=== PATIENT | female | born 2000 | race Hispanic/Latino ===

== ENCOUNTER 2020-10-09 19:26 | Emergency (ER) | payer OTHER, SELFPAY ==
--- NOTE | 2020-10-09 19:28 | ED.GENADULT ---
HPI - General Adult General Chief complaint: Skin/Abscess/Foreign Body Stated complaint: Abscess Source: patient Mode of arrival: ambulatory Limitations: no limitations History of Present Illness HPI narrative: 20 female. PMH includes: None reported. Presents to [facility] today with acute complaints of LT inner groin abscess formation and pain. Client reports to shave her groin area, and noticed increased irritation, erythema, and swelling to site in past 1 week. No fever. No myalgia. No additional areas of integumentary involvement. Related Data Allergies Allergy/AdvReac Type Severity Reaction Status Date / Time No Known Allergies Allergy Verified 01/15/18 12:55 Review of Systems Review of Systems: Narrative: CONSTITUTIONAL: Denies fever, chills, sweats. EYES: Denies visual changes, redness, discharge. ENT: Denies rhinorrhea, congestion, sore throat, otalgia. CARDIOVASCULAR: Denies chest pain, palpitations, edema. RESPIRATORY: Denies dyspnea, wheezing, cough GASTROINTESTINAL: Denies abdominal pain, nausea, vomiting, diarrhea. GENITOURINARY: Denies dysuria, hematuria, abnormal discharge SKIN: Redness and wound LT inner groin. MUSCULOSKELETAL: Denies acute back pain, joint pain, or myalgia. NEUROLOGIC: Denies numbness, or focal weakness. PSYCHIATRIC: Denies anxiety or depression. All systems reviewed & are unremarkable except as noted in HPI and below Exam Narrative: Exam Narrative: GENERAL: This is a well-nourished, well-developed patient, in no apparent distress. HEAD: normocephalic, atraumatic. EYES: PERRL. Sclera clear/white. Vision is grossly intact. EARS: External ears normal, auditory canals clear and without drainage, TMs normal without perforation. Hearing grossly intact. NOSE: External nose normal with no obvious nasal discharge, nares without redness, no rhinorrhea. THROAT: Mucous membranes moist, posterior pharynx clear. NECK: Neck supple, non-tender without lymphadenopathy, masses or thyromegaly. CARDIOVASCULAR: Regular rate and rhythm without murmurs, gallops, or rubs. RESPIRATORY: Clear to auscultation. Breath sounds equal bilaterally. No wheezes, rales, or rhonchi. GASTROINTESTINAL: Abdomen soft, non-tender, nondistended. Bowel sounds are active. No hepato-splenomegaly, or palpable masses. No guarding. SKIN: warm, intact. There is a small 1cm area of fluctuance and erythema located to inner LT groin area. There is tenderness to site. Exam findings consistent with cellulitis/Folliculitis. No additional integumentary wounds or concern. NEURO: awake, alert, and oriented to person, place and time. There were no obvious focal neurologic abnormalities. Steady gait Course Course Emergency Course: -I have discussed with this client that our plan of care today is to proceed with I&D of reported area. -A sample of any drainage will be collected and sent off for further analysis. -The client will be started on antibiotic therapy for skin and soft tissue coverage. -Home plan of care, medication, dressing changes, and wound care has been reviewed. -The patient has been advised to follow up with their primary care provider in the next 3-5 days for close follow-up and re-evaluation. -Proceed to the nearest ER with development of sudden severe pain, swelling, wound discharge, fevers, or worsening. Client agrees. Vital Signs Vital signs: Vital Signs Temperature 36.9 C 10/09/20 19:34 Pulse Rate 89 10/09/20 19:34 Respiratory Rate 16 10/09/20 19:34 Blood Pressure 106/56 L 10/09/20 19:34 Pulse Oximetry 99 10/09/20 19:34 Temperature 36.9 C 10/09/20 19:34 Pulse Rate 89 10/09/20 19:34 Respiratory Rate 16 10/09/20 19:34 Blood Pressure 106/56 L 10/09/20 19:34 Pulse Oximetry 99 10/09/20 19:34 Procedures Abscess I/D lower extremity: Date of Incision: 10/09/20 Time of Incision: 19:43 Side (if applicable): left (Groin ) Sedation/analgesia: no
[2020-10-09 19:34] VITALS: BP 106/56; PULSE 89; RESP 16; TEMP 36.9; O2SAT 99
== END 2020-10-09 19:55 | disposition home or self-care (01) ==
PROVIDERS: Emergency Provider Nurse Practitioner Adult Health; PCP Family Medicine
DX: L73.9 Follicular disorder, unspecified (principal); L03.116 Cellulitis of left lower limb
CPT/HCPCS: 10060; 87070; 87075; 87076; 87205; 99213; G0463

== ENCOUNTER 2021-06-18 14:37 | Emergency (ER) | payer OTHER, SELFPAY ==
[2021-06-18 14:46] VITALS: BP 104/49; PULSE 65; RESP 16; TEMP 37; O2SAT 100
--- NOTE | 2021-06-18 14:48 | ED.ABDPAIN ---
HPI - Abdominal Pain General Chief Complaint: Abdominal Pain Stated Complaint: Abdominal Pain Time Seen by Provider: 06/18/21 14:49 Source: patient, RN notes reviewed and old records reviewed Mode of arrival: ambulatory Limitations: no limitations History of Present Illness HPI narrative: 20-year-old female presents to the [facility] with right upper, right lower and umbilical pain that has been increasing over the last 5 days. Has taken Tylenol which has helped. Denies any chest pain. Last bowel movement was yesterday. Denies any urinary symptoms. No frequency, urgency or burning. Patient reports irregular periods but denies any chances of . MD elicited complaint: abdominal pain Related Data Home Medications Medication Instructions Recorded Confirmed No Home Medications 06/18/21 06/18/21 Allergies Allergy/AdvReac Type Severity Reaction Status Date / Time No Known Allergies Allergy Verified 06/18/21 14:41 Review of Systems Review of Systems: All systems reviewed & are unremarkable except as noted in HPI and below Constitutional: Constitutional: Reports no additional constitutional complaints, Denies body ache(s), Denies chills and Denies fever(s) Eyes: Eyes: Reports no additional eye complaints ENT: Reports system reviewed and no additional complaints, except as documented Cardiovascular: Cardiovascular: Reports no additional cardiovascular complaints, Denies chest pain and Denies dyspnea Respiratory: Respiratory: Reports no additional respiratory complaints, Denies cough and Denies dyspnea Gastrointestinal: Gastrointestinal: Reports as per HPI, Reports abdominal pain, Denies constipation, Denies diarrhea, Denies nausea and Denies vomiting Genitourinary: Genitourinary: Reports no additional female genitourinary complaints Musculoskeletal: Musculoskeletal: Reports no additional musculoskeletal complaints Integumentary/Breasts: Skin/Breast: Reports system reviewed and no additional complaints, except as docu Neurologic: Reports system reviewed and no additional complaints, except as documented Psychiatric: Psychiatric: Reports no additional psychiatric complaints Allergic/Immunologic: Allergic/Immunologic: Reports no additional allergic/immunologic complaints PMFSH Comments At the time of my signature, I reviewed and agree with the nursing past medical, surgical, social, and family history. There is no relevant family history pertinent to the patient complaint. Exam Const: General: cooperative, healthy appearing, comfortable, no acute distress, well developed and alert Nutritional Appearance: well nourished Orientation/consciousness: patient oriented x3 Limitations: no limitations HENMT: Head: normal to inspection Ears: external ears normal Eyes: Pupils: Equal, round and reactive pupils present Neck: Neck: normal visual inspection, no lymphadenopathy and no meningeal signs Chest: Chest palpation & inspection: normal inspection of the chest Resp: Effort & Inspection: normal respiratory effort, able to speak in complete sentences and no use of accessory muscles Auscultation: clear to auscultation bilaterally Cardio: Rate: regular rate Rhythm: regular rhythm GI: GI Palp: Yes Soft to palpation, Yes Tenderness to palpation present (GI) (Right upper, right lower) and No Guarding due to palpation present (GI) Auscultation: normal bowel sounds Back/Spine/Pelvis: Back: no CVA tenderness Skin: General skin exam: normal color and no rashes or lesions noted Rashes: no rashes Wounds: no wounds Neuro: General: patient oriented x3, gait normal, moves all extremities, no meningeal signs and no focal motor deficits Cranial nerves: Yes Equal, round and reactive pupils present Speech: normal speech Gait exam (Neuro): Normal gait present Extrem: General: normal to inspection, full ROM and capillary refill normal Psych: Appearance: grossly normal and well kempt Mental Status: mental status gr
== END 2021-06-18 14:57 | disposition short-term general hospital (02) ==
LOC: EXPCOLL 14:40
PROVIDERS: Emergency Provider Nurse Practitioner; PCP Family Medicine
DX: R10.13 Epigastric pain (principal); R10.31 Right lower quadrant pain
CPT/HCPCS: 99212; G0463

== ENCOUNTER 2021-06-18 15:20 | Emergency (ER) | payer OTHER, SELFPAY ==
--- NOTE | ~2021-06-18 | CT_ITS ---
EXAMINATION: CT abdomen pelvis w con EXAM DATE: 06/18/2021 19:33 INDICATION: Right lower quadrant pain, abdominal cramping. TECHNIQUE: Spiral CT of the abdomen and pelvis was performed following intravenous injection of 100 m L Omnipaque 350. Axial, coronal and sagittal images of the abdomen and pelvis were reviewed. The do se-length product (DLP) for this examination was 386.61 mGy-cm. The exposure was tailored according to patient size (auto mA exposure control), and iterative reconstruction (ASIR) was used as additiona l dose reduction technique. There is no prior study for comparison. FINDINGS: The liver, spleen, adrenal glands and pancreas are unremarkable. Gallbladder is unremarkab le. No biliary obstruction. Portal and splenic veins are patent. Kidneys enhance symmetrically. T here is no hydronephrosis. There is IUD which appears to be centrally located within the endometriu m, expected position. The bladder is unremarkable. There is no retroperitoneal or pelvic lymphadeno olive. There is mild inflammation surrounding the rectum. There are a couple of tiny foci of gas which poten tially could be extraluminal, indicated on axial image 157. Possible indicating rectal trauma. Otherw ise, no evidence of colitis or colonic diverticula. Possible identification of the appendix running just anterior to the right ureter at the pelvic inlet , does not have appendicolith or appear fluid-filled. Finding has been indicated on coronal and axial images were reviewed (see axial image 130). The stomach and small bowel are unremarkable. There is expected amount of colonic stool. The heart is normal in size. There are no pericardial or pleural effusions. The lung bases are unremarkable. There is mild lumbar dextro scoliosis. IMPRESSION: 1. Mild perirectal fat stranding with suspicion of several punctate foci of extraluminal gas suspici ous for microperforation. Clinical correlation. 2. Probable identification of appendix without IUD in position. Reviewed, dictated and finalized at location G. [employer]OLOG[employer] INSTRUCTOR IMPRESSION: 1. Mild perirectal fat stranding with suspicion of several punctate foci of ex traluminal gas suspicious for microperforation. Clinical correlation. 2. Probable identification of appendix without IUD in position.
[2021-06-18 15:40] VITALS: BP 104/62; PULSE 56; RESP 18; TEMP 36.4; O2SAT 100
[2021-06-18 16:50] LABS: Add Urine Microscopic? YES; Appearance Urine Clear (Clear); Bilirubin Urine Negative (Negative); Color Urine Yellow (Yellow); Glucose Urine UA Negative (Negative); Ketones Urine Negative (Negative); Leukocyte Esterase Ur 3+ LEU/UL (Negative); Mucus Urine Rare /lpf; Nitrate Urine Negative (Negative); Protein Urine Negative (Negative); Specific Grav Ur 1.027 (1.001-1.035); Squamous Epithelial Cell Urine Many /hpf (Few); Urobilinogen Urine Negative mg/dL (<2.0); WBC Urine 51-75 /hpf
[2021-06-18 16:55] LABS: Blood Urine Negative (Negative)
[2021-06-18] MEDS: KETOROLAC 15 MG/ML VIAL (*BKC) IV PUSH (17:55)
[2021-06-18] MEDS: SODIUM CHLORIDE 0.9% IV 1,000 ML 999 ML IV CONT (17:59)
[2021-06-18 18:03] LABS: Basophils Percent Auto 0.3 % (0.2-1.2); Eosinophils Absolute Auto 0.2 K/mm3 (0-0.3); Eosinophils Percent Auto 2.3 % (0-4.4); Hematocrit 40.5 % (37.0-47.0); Hemoglobin 13.1 g/dL (12.0-15.0); Immature Granulocyte Absolute 0.02 K/mm3 (0.00-0.031); Immature Granulocyte Percent A 0.3 % (0-0.5); Lymphocytes Absolute Auto 2.02 K/mm3 (0.9-3.2); Lymphocytes Percent Auto 26.8 % (18.3-44.2); Mean Corpuscular HGB Conc 32.3 g/dl (32-36); Mean Corpuscular Hemoglobin 29.4 pg (26-34); Mean Corpuscular Volume 90.8 fl (80-100); Mean Platelet Volume 11.2 fl (7.4-10.4); Monocytes Absolute Auto 0.4 K/mm3 (0.1-0.6); Monocytes Percent Auto 5.8 % (2.6-8.5); Neutrophils Absolute Auto 4.9 K/mm3 (1.3-6.7); Neutrophils Percent Auto 64.5 % (45.5-73.1); Platelet Count Result 227 k/mm3 (150-375); Red Blood Count 4.46 M/mm3 (4.2-5.4); Red Cell Distribution Width 13.6 % (11.5-14.5); White Blood Count 7.5 K/mm3 (4.5-10.0)
[2021-06-18 18:11] LABS: Alanine Aminotransferase 12 U/L (4-35); Albumin Level 4.8 g/dL (3.5-5.1); Alkaline Phosphatase 69 U/L (38-126); Anion Gap 7 mmol/L (8-16); Aspartate Amino Transferase 23 U/L (14-36); Bilirubin,Total 0.3 mg/dL (0.2-1.3); Blood Urea Nitrogen 19 mg/dL (7-17); Calcium 9.6 mg/dL (8.4-10.2); Carbon Dioxide 28 mmol/L (22-30); Chloride 106 mmol/L (98-107); Estimated CRCL calculation 117 ml/min; Estimated Glomerular Filt Rate > 60; Glucose 91 mg/dL (65-110); Lipase 71 U/L (23-300); Potassium 4.3 mmol/L (3.4-5.0); Sodium 141 mmol/L (137-145)
[2021-06-18 20:33] VITALS: BP 121/68; PULSE 78; RESP 16; O2SAT 98
--- NOTE | 2021-06-18 20:55 | PC.NURSE ---
Assisted provider with rectal exam.
--- NOTE | 2021-06-18 20:58 | ED.GENADULT ---
HPI - General Adult General Chief complaint: Abdominal Pain Stated complaint: Abdominal Pain Time Seen by Provider: 06/18/21 17:02 Source: patient and RN notes reviewed Mode of arrival: ambulatory Limitations: no limitations History of Present Illness HPI narrative: Patient is a 20-year-old female who presents to emergency department for evaluation of 4 to 5 days duration of epigastric discomfort that is increased in nature she notes no similar occurrence in the past. Patient denies any rectal bleeding melena diarrhea constipation. She has tried [id number] medication with mild improvement. She localizes the pain to the epigastrium of the abdomen . Denies any URI symptoms or any vaginal or urinary complaints Related Data Allergies Allergy/AdvReac Type Severity Reaction Status Date / Time No Known Allergies Allergy Verified 06/18/21 14:41 Review of Systems Review of Systems: All systems reviewed & are unremarkable except as noted in HPI and below Exam Narrative: GENERAL: Well-appearing, well-nourished, and in no acute distress. HEAD: Normocephalic, atraumatic. EYES: PERRLA and EOMI. ENT: Nares clear, no rhinorrhea or epistaxis. Mucous membranes moist. Oropharynx without tonsillar hypertrophy exudate or other lesions. NECK: Supple. No adenopathy or masses. CHEST: Clear to auscultation. No respiratory distress. No wheezes rales or rhonchi HEART: Regular rate and rhythm. No murmur heard. Normal peripheral pulses. ABDOMEN: Soft, mild epigastric tenderness and right lower quadrant tenderness no rebound or guarding, nondistended, normal active bowel sounds. Rectal exam did not elicit any abnormalities there is no inflammation swelling or irritation around the rectum or drainage EXTREMITIES: Normal range of motion. No edema. SKIN: Warm, dry, no rash. NEURO: No focal deficits. Alert and oriented x3. Cranial nerves II through XII grossly intact PSYCH: Normal mood and affect. Course Course Emergency Course: Patient presented with GI upset her CAT scan findings were reviewed with her and the general surgeon he recommended rectal exam and noted that if there was no acute abnormality on exam that the patient should be treated for urinary tract infection and can be discharged home with outpatient follow-up and given indications for return. Patient aware of her CBC CMP lipase and urinalysis results. There is no fever no nausea emesis. Patient notes mild discomfort of the abdomen. She has no leukocytosis. She agrees for discharge home given strict indications to return and agrees to return if symptoms worsen. She is nontoxic-appearing and without emesis Consultations Consultation #1: Discussed case with general surgeon Dr. Mohsen Woodson who reviewed the CT imaging and labs and recommends rectal exam if no abnormalities on exam recommends that the patient be treated for urinary tract infection with indications to return and outpatient follow-up Date: 06/18/21 Vital Signs Vital signs: Vital Signs Temperature 97.5 F L 06/18/21 15:40 Pulse Rate 56 L 06/18/21 15:40 Respiratory Rate 18 06/18/21 15:40 Blood Pressure 104/62 06/18/21 15:40 Pulse Oximetry 100 06/18/21 15:40 Temperature 97.5 F L 06/18/21 15:40 Pulse Rate 78 06/18/21 20:33 Respiratory Rate 16 06/18/21 20:33 Blood Pressure 121/68 06/18/21 20:33 Pulse Oximetry 98 06/18/21 20:33 Medical Decision Making MDM Narrative Medical decision making narrative: Patient presented with abdominal pain without any fever nausea vomiting or bowel habit changes denying any rectal pain or discomfort. Her blood results and imaging results reviewed with the general surgeon decision was made to treat for urinary tract infection with outpatient follow-up with strict indications for return. Patient was given these indications and agrees to do so symptoms worsen. She was hydrated and given medications in the emergency department with improvement. She is afebrile n
[2021-06-18 21:44] VITALS: PULSE 77; RESP 18; O2SAT 98
== END 2021-06-18 21:51 | disposition home or self-care (01) ==
PROVIDERS: Emergency Medicine; Emergency Medicine Emergency Medical Services; Emergency Provider Emergency Medicine; PCP Family Medicine
DX: R10.13 Epigastric pain (principal); Z97.5 Presence of (intrauterine) contraceptive device; R93.3 Abnormal findings on diagnostic imaging of other parts of digestive tract
CPT/HCPCS: 36415; 74177; 80053; 81001; 81025; 83690; 85025; 87086; 96361; 96365; 96375; 99284; J0131; J0696; J1885; J7030; Q9967

== ENCOUNTER 2022-04-09 12:49 | Emergency (ER) | payer OTHER, SELFPAY ==
[2022-04-09 12:55] VITALS: BP 113/69; PULSE 70; RESP 18; TEMP 36.6; O2SAT 100
--- NOTE | 2022-04-09 12:57 | ED.EYEPROB ---
HPI - Eye Problem General Chief complaint: Eye Problems Stated complaint: left eye pain Time Seen by Provider: 04/09/22 12:57 Source: patient and RN notes reviewed Mode of arrival: ambulatory Limitations: no limitations History of Present Illness HPI Narrative: 21-year-old female presents with concern for left eye redness, drainage. Reports symptoms started last night. Reports her eye was crusted shut when she woke up this morning. She denies injury or trauma to the eye. Reports she wears contact lenses but she did not sleep in them. She denies upper respiratory symptoms, vision changes chief complaint: eye redness Related Data Home Medications Medication Instructions Recorded Confirmed bupropion HCl 300 mg 24 hr tablet, 300 mg PO DAILY 04/09/22 04/09/22 extended release trazodone 100 mg tablet 100 mg PO DAILY 04/09/22 04/09/22 Allergies Allergy/AdvReac Type Severity Reaction Status Date / Time No Known Allergies Allergy Verified 04/09/22 12:59 Review of Systems Review of Systems: CONSTITUTIONAL: Denies malaise, chills, sweats, or fever. EYES: Denies visual changes. Reports left eye redness, irritation, discharge. ENT: Denies rhinorrhea, congestion, sinus pain, otalgia or sore throat. SKIN: Denies rash or itching. NEUROLOGIC: Denies numbness, weakness, or headache. PSYCHIATRIC: Denies anxiety or depression. All systems reviewed & are unremarkable except as noted in HPI and below PMFSH Comments At time of signature, agree with nursing past medical, surgical, social and family history. There is no relevant family history pertinent to the presenting complaint Exam Narrative: GENERAL: Well-appearing, well-nourished, and in no acute distress. HEAD: Normocephalic, atraumatic. EYES: PERRLA, right sclera clear, and EOMI. No nystagmus. Left sclera and conjunctivae injected with green drainage noted. Upper and lower eyelid unremarkable, no periorbital edema noted ENT: Nares clear, turbinates pink, no rhinorrhea or epistaxis. Mucous membranes moist. TM pearly nazario with sharp light reflex bilaterally; no tragal tenderness. NECK: Supple. CHEST: No respiratory distress. Speaks in full sentences. HEART: Regular rate and rhythm. SKIN: Warm, dry, no visible rash. NEURO: Alert and oriented x3. PSYCH: Normal mood and affect Course Course Emergency Course: Patient is aware of diagnosis, understands and agrees to treatment plan. Anticipatory guidance given. Patient agrees to follow-up as directed and is aware of reasons to seek care at the emergency department. Portions of this record may have been created with voice recognition software Level of Care: Express Care Visit Vital Signs Vital signs: Reviewed. MDM - Eye Problem MDM Narrative Medical decision making narrative: Consideration of the following conditions may be warranted for the presenting problem, they are not final diagnoses: Bacterial conjunctivitis, allergic conjunctivitis, viral conjunctivitis, foreign body, blepharitis, chalazion, hordeolum, corneal abrasion, preseptal cellulitis, orbital cellulitis. No evidence of proptosis, ophthalmoplegia, vision loss, pain with eye movement. Exam findings show no acute concerns or changes; patient is non-toxic appearing and is in no distress. Patient is appropriate for outpatient treatment and follow-up. Critical Care Time Critical Care Time Critical Care Time: No Discharge Plan Discharge Clinical Impression: Bacterial conjunctivitis Patient Disposition: Home, Self-Care Condition: Stable Instructions: Conjunctivitis (ED) Additional Instructions: Do not touch or rub your eye. Use a warm or cool washcloth on your eye for comfort Use eyedrops as directed Practice good handwashing and hygiene to prevent spread of infection You may take Tylenol or ibuprofen for pain Follow-up with PCP or parboiler if condition is not improving in 2-3days. Go to the emergency room if you have pain be
== END 2022-04-09 13:08 | disposition home or self-care (01) ==
PROVIDERS: Emergency Provider Nurse Practitioner; PCP Family Medicine
DX: H10.9 Unspecified conjunctivitis (principal); F41.9 Anxiety disorder, unspecified; F32.A Depression, unspecified
CPT/HCPCS: 99213; G0463

== ENCOUNTER 2022-07-17 15:01 | Outpatient (CLI) | payer OTHER, SELFPAY ==
--- NOTE | 2022-07-17 | ECG_ITS ---
Measurements Intervals Kinsey Rate: 65 P: 47 CA: 166 QRS: 32 QRSD: 106 T: 49 QT: 404 QTc: 423 Interpretive Statements SINUS RHYTHM BORDERLINE T WAVE ABNORMALITY- ANTERIOR LEADS BORDERLINE ECG NO PREVIOUS ECG AVAILABLE FOR COMPARISON Electronically Signed On 07-17-2022 15:50:10 [employer]UCLE[employer] POWER REACTOR OPERATOR by Jens Otero D.O.
== END 2022-07-17 15:02 | disposition home or self-care (01) ==
LOC: ANHCARD 15:03
PROVIDERS: PCP Family Medicine; Visit Provider Family Medicine
DX: Z01.818 Encounter for other preprocedural examination (principal); Z41.1 Encounter for cosmetic surgery
CPT/HCPCS: 93005

== ENCOUNTER 2022-07-29 11:16 | Emergency (ER) | payer OTHER, SELFPAY ==
[2022-07-29 11:28] VITALS: BP 106/50; PULSE 67; RESP 12; TEMP 36.4; O2SAT 100
--- NOTE | 2022-07-29 12:23 | ED.BACK ---
HPI - Back Pain/Injury General Chief Complaint: Back Pain/Injury Stated Complaint: low back pain Time Seen by Provider: 07/29/22 12:23 Source: patient, RN notes reviewed and old records reviewed Mode of arrival: ambulatory Limitations: no limitations History of Present Illness HPI Narrative: 22-year-old female presents to the [facility] with complaints of low back pain History of low back pain, denies any injury. No loss or retention of bowel or bladder. No saddle anesthesia. No numbness or tingling in extremities Related Data Home Medications Medication Instructions Recorded Confirmed bupropion HCl 300 mg 24 hr tablet, 300 mg PO DAILY 04/09/22 07/29/22 extended release 6 Years Iud 07/29/22 Allergies Allergy/AdvReac Type Severity Reaction Status Date / Time No Known Allergies Allergy Verified 07/29/22 11:39 Review of Systems Review of Systems: All systems reviewed & are unremarkable except as noted in HPI and below Constitutional: Constitutional: Reports no additional constitutional complaints Eyes: Eyes: Reports no additional eye complaints ENT: Reports system reviewed and no additional complaints, except as documented Cardiovascular: Cardiovascular: Reports no additional cardiovascular complaints, Denies chest pain and Denies dyspnea Respiratory: Respiratory: Reports no additional respiratory complaints, Denies chest congestion, Denies cough and Denies dyspnea Gastrointestinal: Gastrointestinal: Reports no additional gastrointestinal complaints, Denies abdominal pain, Denies nausea and Denies vomiting Musculoskeletal: Musculoskeletal: Reports as per HPI and Reports back pain (Lumbar lower) Integumentary/Breasts: Skin/Breast: Reports system reviewed and no additional complaints, except as docu Neurologic: Reports system reviewed and no additional complaints, except as documented Psychiatric: Psychiatric: Reports no additional psychiatric complaints Allergic/Immunologic: Allergic/Immunologic: Reports no additional allergic/immunologic complaints PMFSH Comments At the time of my signature, I reviewed and agree with the nursing past medical, surgical, social, and family history. There is no relevant family history pertinent to the patient complaint. Exam Const: General: cooperative, healthy appearing, comfortable, no acute distress, well developed, alert and well nourished Nutritional Appearance: well nourished Orientation/consciousness: patient oriented x3 Limitations: no limitations HENMT: Head: normal to inspection Ears: hearing grossly normal bilaterally and external ears normal Face/Nose/Sinus: Normal external nose present, Normal nares present, Normal nasal mucous membranes and turbinates present and normal facial exam Face and sinus: normal facial exam Mouth: Yes Normal oral and palatal mucosa present, Yes lip normal and Yes moist mucous membranes Eyes: General: appearance normal, both eyes and all related structures Alignment and Position: alignment normal Periorbital: periorbital findings normal Conjunctivae: conjunctivae normal Pupils: Equal, round and reactive pupils present EOM: EOMs intact bilaterally Neck: Neck: normal visual inspection, full ROM, no lymphadenopathy and no meningeal signs Chest: Chest palpation & inspection: normal inspection of the chest Resp: Effort & Inspection: normal respiratory effort and able to speak in complete sentences Auscultation: clear to auscultation bilaterally, no crackles, no rales, no rhonchi and no wheezes Cardio: Rate: regular rate Rhythm: regular rhythm Back/Spine/Pelvis: Back: no CVA tenderness Cervical Spine: cervical ROM normal Thoracic/Lumbar Spine: paraspinal muscle tenderness on the left in the lower lumbar, No thoracic spinal tenderness and No lumbar spinal tenderness Pelvis: no pain with anterior-posterior compression and no pain with lateral compression Skin: General skin exam: normal color and no rashes or lesions noted L
== END 2022-07-29 12:37 | disposition home or self-care (01) ==
PROVIDERS: Emergency Provider Nurse Practitioner; PCP Family Medicine
DX: S39.012A Strain of muscle, fascia and tendon of lower back, initial encounter (principal); X58.XXXA Exposure to other specified factors, initial encounter; F41.9 Anxiety disorder, unspecified; F32.A Depression, unspecified
CPT/HCPCS: 81003; 81025; 99213; G0463

== ENCOUNTER 2023-04-26 15:34 | Emergency (ER) | payer OTHER, SELFPAY ==
[2023-04-26 15:59] VITALS: BP 93/67; PULSE 79; RESP 16; TEMP 37.2; O2SAT 100
--- NOTE | 2023-04-26 17:14 | ED.DENTAL ---
HPI - Dental/Oral General Chief complaint: Dental/Oral Stated complaint: Mouth Irritation Source: patient Mode of arrival: ambulatory Limitations: no limitations History of Present Illness HPI Narrative: Patient presents for evaluation of painful mucosal changes to the inner aspect of her upper and lower lips for the past five days. She currently has braces and states that the metal has been cutting into the oral mucosa of her lips. Her lips feel dry. She has applied hydrogen peroxide and states that the areas appear white. She was concerned about the appearance of the lips so came in for further evaluation. She denies any other symptoms. She is not sure whether she has ever had cold sores in the past. Related Data Home Medications Medication Instructions Recorded Confirmed hydroxyzine HCl 10 mg tablet mg 04/26/23 trazodone 100 mg tablet mg 04/26/23 Allergies Allergy/AdvReac Type Severity Reaction Status Date / Time No Known Allergies Allergy Verified 04/26/23 16:12 Review of Systems Review of Systems: CONSTITUTIONAL: Denies fever, chills, or sweats. EYES: Denies visual changes, redness, or discharge. ENT: Reports painful changes to the mucosa of her inner upper and lower lips. Denies rhinorrhea, congestion, sore throat, or otalgia. CARDIOVASCULAR: Denies chest pain, palpitations, or edema. RESPIRATORY: Denies cough or dyspnea. GASTROINTESTINAL: Denies abdominal pain, nausea, vomiting, or diarrhea. GENITOURINARY: Denies dysuria or hematuria. SKIN: Denies rash or itching. MUSCULOSKELETAL: Denies back pain, joint pain, or myalgia. NEUROLOGIC: Denies headache, numbness, dizziness, or weakness. PSYCHIATRIC: Denies anxiety or depression. [facility] Past Medical History Medical History No pertinent past medical history Surgical History Surgical History No pertinent past surgical history Family History Family History Mother Family history non-contributory Social History Social History Smoking status: Never smoker Substance use: never Gender identity (if verbalized by the patient): Female Spiritual care concerns: No Exam Narrative: GENERAL: Well-appearing, well-nourished, and in no acute distress. HEAD: Normocephalic, atraumatic. EYES: PERRLA and EOMI. ENT: Nares clear, no rhinorrhea or epistaxis. Patient has braces to her upper and lower teeth. Mucous membranes moist. There is a white appearance to mucosa of the inner aspect of her upper lip in the area which would come in contact with her braces, consistent with granulation tissue. Oropharynx without tonsillar hypertrophy exudate Bilateral TMs pearly nazario nonbulging NECK: Supple. No adenopathy or masses. No carotid bruits or JVD CHEST: Clear to auscultation. No respiratory distress. No wheezes rales or rhonchi HEART: Regular rate and rhythm. No murmur heard. Normal peripheral pulses. ABDOMEN: Soft, nontender, nondistended, normal active bowel sounds. EXTREMITIES: Normal range of motion. No edema. SKIN: Warm, dry, no rash. NEURO: No focal deficits. Alert and oriented x3. PSYCH: Normal mood and affect. Course Course Emergency Course: This is a 22-year-old female who presented for evaluation of painful lip ulcers. Appearance is consistent with granulation tissue. Advised she stop using hydrogen peroxide as it may break down healing tissue. Will dc with peridex. Advised she apply vaseline to her lips. She may purchase dental wax to coat her metallic braces with so as to allow for healing of lip mucosa. 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 Go to the emergency room for worsening symptoms. Pt in agreement with plan of care. Get
== END 2023-04-26 17:26 | disposition home or self-care (01) ==
PROVIDERS: Emergency Provider Nurse Practitioner; PCP Family Medicine
DX: K13.0 Diseases of lips (principal)
CPT/HCPCS: 99213; G0463

== ENCOUNTER 2023-05-26 11:05 | Outpatient (CLI) | payer OTHER, SELFPAY ==
--- NOTE | ~2023-05-26 | US_ITS ---
Renal-Bladder ultrasound Clinical History: History of polycystic kidney disease Technique: Real-time sonographic imaging of the kidneys and urinary bladder was performed. Findings: The right kidney measures 10.2 cm in length and the left kidney measures 10.9 cm. There is no hydronephrosis or renal calculus identified. Renal cortical echogenicity is within normal limits. No renal mass lesion is identified. The urinary bladder is partially distended at the time of this exam. No intraluminal echoes are ident ified. No abnormal wall thickening is seen. Impression: Unremarkable ultrasound of the kidneys and urinary bladder. Reviewed, dictated and finalized at location M. E RECEIVER Impression: Unremarkable ultrasound of the kidneys and urinary bladder.
== END 2023-05-26 11:06 | disposition home or self-care (01) ==
LOC: ANHIMG 11:09
PROVIDERS: PCP Family Medicine; Visit Provider Family Medicine
DX: Z82.71 Family history of polycystic kidney (principal)
CPT/HCPCS: 76775

== ENCOUNTER 2023-07-08 17:22 | Emergency (ER) | payer OTHER, SELFPAY ==
[2023-07-08 17:32] VITALS: BP 119/58; PULSE 63; RESP 16; TEMP 36.9; O2SAT 100
--- NOTE | 2023-07-08 17:45 | ED.GENADULT ---
HPI - General Adult General Chief complaint: Skin/Abscess/Foreign Body Stated complaint: Right Hand Irritation Source: patient, RN notes reviewed and old records reviewed Mode of arrival: ambulatory Limitations: no limitations History of Present Illness HPI narrative: patient with complaints of redness, irritation, itching to back right hand this started several months ago. 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 Patient states has not been using the bleach for over 3 months but your taken does clear up. Patient states Vaseline does help, but redness and irritation returns. Related Data Home Medications Medication Instructions Recorded Confirmed trazodone 100 mg tablet 100 mg PO DAILY 04/26/23 07/08/23 Allergies Allergy/AdvReac Type Severity Reaction Status Date / Time No Known Allergies Allergy Verified 07/08/23 17:36 Review of Systems Constitutional: Constitutional: Reports no additional constitutional complaints, Denies body ache(s), Denies chills, Denies fatigue, Denies fever(s) and Denies headache(s) Eyes: Eyes: Reports no additional eye complaints and Denies blurry vision ENT: Reports system reviewed and no additional complaints, except as documented, Denies vertigo, Denies dizziness, Denies ear discharge, Denies otalgia, Denies facial pain, Denies headache(s), Denies nasal congestion, Denies nasal discharge, Denies sinus pain, Denies sinus pressure and Denies sore throat Cardiovascular: Cardiovascular: Reports no additional cardiovascular complaints, Denies chest pain, Denies chest pain at rest, Denies rapid heart rate and Denies dyspnea Respiratory: Respiratory: Reports no additional respiratory complaints, Denies chest congestion, Denies cough, Denies pain on inspiration, Denies pain with cough and Denies dyspnea Gastrointestinal: Gastrointestinal: Denies abdominal pain, Denies diarrhea, Denies nausea and Denies vomiting Integumentary/Breasts: Skin/Breast: Reports rash and Reports skin pain Neurologic: Reports system reviewed and no additional complaints, except as documented, Denies vertigo, Denies dizziness and Denies headache(s) Endocrine: Endocrine: Denies fatigue PMFSH Past Medical History Medical History No pertinent past medical history Surgical History Surgical History No pertinent past surgical history Family History Family History Mother Family history non-contributory Social History Social History Smoking status: Never smoker Substance use: never Gender identity (if verbalized by the patient): Female Spiritual care concerns: No Comments At the time of my signature, I reviewed and agree with the nursing past medical, surgical, social, and family history. There is no relevant family history pertinent to the patient complaint. Exam Const: General: cooperative, healthy appearing, no acute distress and well nourished Nutritional Appearance: well nourished Orientation/consciousness: patient oriented x3 Limitations: no limitations HENMT: Head: normal to inspection and normocephalic Ears: external ears normal Face/Nose/Sinus: normal facial exam Face and sinus: normal facial exam Mouth: Yes Normal oral and palatal mucosa present and Yes moist mucous membranes Eyes: General: appearance normal, both eyes and all related structures Sclera: sclerae normal Pupils: Equal, round and reactive pupils present Resp: Effort & Inspection: normal respiratory effort, able to speak in complete sentences, no audible wheezes, no cough, no respiratory distress and no retractions Skin: General skin exam: normal color Rashes: rashes noted ( 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
== END 2023-07-08 17:55 | disposition home or self-care (01) ==
PROVIDERS: Emergency Provider Registered Nurse; PCP Family Medicine
DX: L30.9 Dermatitis, unspecified (principal)
CPT/HCPCS: 99213; G0463

== ENCOUNTER 2023-12-05 18:32 | Emergency (ER) | payer OTHER, SELFPAY ==
--- NOTE | ~2023-12-05 | XR_ITS ---
EXAMINATION: XR mandible min 4V DATE: 12/05/2023 19:05 INDICATION: Right-sided mandibular pain post fall TECHNIQUE: AP, open-mouth and left and right oblique views of the mandibles were obtained. COMPARISON: None. FINDINGS: Bilateral temporal mandibular joints are normal alignment. No fractures identified. Mastoid air cells and paranasal sinuses appear well aerated with no evident air-fluid levels. IMPRESSION: 1. Negative mandible radiographs. Reviewed, dictated and finalized at location A.
[2023-12-05 18:42] VITALS: BP 115/64; PULSE 87; RESP 16; TEMP 37.1; O2SAT 100
--- NOTE | 2023-12-05 18:46 | ED.FALL ---
HPI - Fall General Chief Complaint: Fall Stated Complaint: FALL Time Seen by Provider: 12/05/23 18:46 Source: patient, RN notes reviewed and old records reviewed Mode of arrival: ambulatory Limitations: no limitations History of Present Illness HPI Narrative: 23-year-old female presents to the [facility] with an abrasion to her chin. Unknown last Tdap Patient states that she tripped and fell, tenderness to the right mandible No bruising or swelling noted, avulsion or abrasion of skin noted to the bottom of the chin measuring 1 by 1 cm Injury occurred approximately 10 30 this morning Denies loss of consciousness, blurry vision, change in vision. No eye pain or ear pain. No sore throat. Full range of motion of the jaw. No midline tenderness Related Data Home Medications Medication Instructions Recorded Confirmed bupropion HCl 300 mg 24 hr tablet, 300 mg PO DAILY 12/05/23 12/05/23 extended release Allergies Allergy/AdvReac Type Severity Reaction Status Date / Time No Known Allergies Allergy Verified 12/05/23 18:34 Review of Systems Review of Systems: All systems reviewed & are unremarkable except as noted in HPI and below Constitutional: Constitutional: Reports no additional constitutional complaints Eyes: Eyes: Reports no additional eye complaints ENT: Reports as per HPI Cardiovascular: Cardiovascular: Reports no additional cardiovascular complaints, Denies chest pain and Denies dyspnea Respiratory: Respiratory: Reports no additional respiratory complaints, Denies chest congestion, Denies cough and Denies dyspnea Gastrointestinal: Gastrointestinal: Reports no additional gastrointestinal complaints, Denies abdominal pain, Denies nausea and Denies vomiting Musculoskeletal: Musculoskeletal: Reports no additional musculoskeletal complaints Integumentary/Breasts: Skin/Breast: Reports as per HPI Neurologic: Reports system reviewed and no additional complaints, except as documented Psychiatric: Psychiatric: Reports no additional psychiatric complaints Allergic/Immunologic: Allergic/Immunologic: Reports no additional allergic/immunologic complaints [facility] Past Medical History Medical History No pertinent past medical history Surgical History Surgical History No pertinent past surgical history Family History Family History Mother Family history non-contributory Social History Social History Smoking status: Never smoker Substance use: never Gender identity (if verbalized by the patient): Female Spiritual care concerns: No Comments At the time of my signature, I reviewed and agree with the nursing past medical, surgical, social, and family history. There is no relevant family history pertinent to the patient complaint. Exam Const: General: cooperative, healthy appearing, comfortable, no acute distress, well developed, alert and well nourished Nutritional Appearance: well nourished Orientation/consciousness: patient oriented x3 Limitations: no limitations HENMT: Head: normal to inspection Head images: 1. Tender to palpation without erythema, ecchymosis or swelling Ears: hearing grossly normal bilaterally and external ears normal Face/Nose/Sinus: Normal external nose present, Normal nares present, Normal nasal mucous membranes and turbinates present, normal facial exam and face symmetric Face and sinus: normal facial exam and face symmetric Mouth: Yes Normal oral and palatal mucosa present, Yes lip normal and Yes tongue normal Teeth and gingiva: dentition normal Throat: posterior oropharynx normal, tonsils normal, uvula midline and no uvular edema Eyes: General: appearance normal, both eyes and all related structures Alignment and Position: alignment nor
[2023-12-05] MEDS: TETANUS,DIPHTHERIA,AC PERTUSSIS ADULT (0.5 ML) BOOSTRIX IM (19:06)
== END 2023-12-05 20:05 | disposition home or self-care (01) ==
PROVIDERS: Emergency Provider Nurse Practitioner; PCP Family Medicine
DX: S00.81XA Abrasion of other part of head, initial encounter (principal); W01.0XXA Fall on same level from slipping, tripping and stumbling without subsequent striking against object, initial encounter; Z23 Encounter for immunization
CPT/HCPCS: 70110; 90471; 90715; 99213; G0463

== ENCOUNTER 2024-07-09 11:00 | Emergency (ER) | payer OTHER, SELFPAY ==
[2024-07-09 11:09] VITALS: BP 111/63; PULSE 82; RESP 16; TEMP 37.1; O2SAT 99
--- NOTE | 2024-07-09 11:25 | ED_ITS ---
HPI - URI/Sore Throat General Chief Complaint: Upper Respiratory Infection Stated Complaint: runny nose,cough,body pain,ERAZO Time Seen by Provider: 07/09/24 11:25 Source: patient Mode of arrival: ambulatory Limitations: no limitations History of Present Illness HPI Narrative: 23-year-old female presents with complaint of cough, congestion, fatigue, body aches, fever, chills for 5 days. Denies nausea vomiting diarrhea. No chest pain or shortness of breath. Taking [id number] Mucinex to treat symptoms. All systems reviewed and negative except as noted above. Related Data Home Medications ?Medication ?Instructions ?Recorded ?Confirmed ?Last Taken ?Type bupropion HCl 300 mg 24 hr tablet, 300 mg PO DAILY 12/05/23 12/05/23 Unknown Hi story extended release Allergies Allergy/AdvReac Type Severity Reaction Status Date / Time No Known Allergies Allergy Verified 12/05/23 18:34 Review of Systems Review of Systems: CONSTITUTIONAL: reports fever, chills, or sweats. EYES: Denies visual changes, redness, or discharge. ENT: Reports rhinorrhea, congestion. Denies sore throat, or otalgia. CARDIOVASCULAR: Denies chest pain, palpitations, or edema. RESPIRATORY: reports cough. Denies dyspnea. GASTROINTESTINAL: Denies abdominal pain, nausea, vomiting, or diarrhea. GENITOURINARY: Denies dysuria or hematuria. SKIN: Denies rash or itching. MUSCULOSKELETAL: Denies back pain, joint pain, or myalgia. NEUROLOGIC: Denies headache, numbness, or weakness. PSYCHIATRIC: Denies anxiety or depression. All other systems reviewed are negative, except as documented in HPI. [facility] Past Medical History Medical History No pertinent past medical history Surgical History Surgical History No pertinent past surgical history Family History Family History Mother Family history non-contributory Social History Social History Smoking status: Never smoker Substance use: never Gender identity (if verbalized by the patient): Female Spiritual care concerns: No Comments At time of signature, agree with nursing past medical, surgical, social and family history. There is no relevant family history pertinent to the presenting complaint. Exam Narrative: GENERAL: This is a well-nourished, well-developed patient, ill-appearing but no acute distress HEAD: normocephalic, atraumatic. EYES: PERRL. Sclera clear/white. Vision is grossly intact. EARS: External ears normal, auditory canals clear and without drainage, TMs normal without perforation. Hearing grossly intact. NOSE: External nose normal with Clear nasal drainage THROAT: Mucous membranes moist, mild erythema postnasal drainage. No swelling or exudates. NECK: Neck supple, non-tender without lymphadenopathy, masses or thyromegaly. CARDIOVASCULAR: Regular rate and rhythm without murmurs, gallops, or rubs. RESPIRATORY: Clear to auscultation. Breath sounds equal bilaterally. No wheezes, rales, or rhonchi. SKIN: warm, Dry, intact with no suspicious lesions or rash, good texture and turgor. NEURO: awake, alert, and oriented to person, place and time. There were no obvious focal neurologic abnormalities. EXTREMITIES: No joint tenderness, effusion, or edema noted. Course Course Level of Care: Express Care Visit Vital Signs Vital signs: Vital Signs Temperature 37.1 C 07/09/24 11:09 Pulse Rate 82 07/09/24 11:09 Respiratory Rate 16 07/09/24 11:09 Blood Pressure 111/63 07/09/24 11:09 Pulse Oximetry 99 07/09/24 11:09 Oxygen Delivery Room Air 07/09/24 11:09 Temperature 37.1 C 07/09/24 11:09 Pulse Rate 82 07/09/24 11:09 Respiratory Rate 16 07/09/24 11:09 Blood Pressure 111/63 07/09/24 11:09 Pulse Oximetry 99 07/09/24 11:09 Oxygen Delivery Room Air 07/09/24 11:09 reviewed MDM - URI/Sore Throat MDM Narrative Medical decision making narrative: positive influenza a. Patient is alert, nontoxic. Lungs clear to auscultation. Recommend she continue [id number] medications to treat viral symptoms. Please be advised this is a medical document. It is intended for [id number]-[id number] communication. It is written in medical language and may contain unfamiliar abbreviations or verbiage. Medical documents are intended to carry relevant information, facts as evident, and the clinical opinion of the practitioner at the time of the encounter. This report may have been done utilizing a voice recognition system. Attempts have been made to correct errors. However, there may be uncorrected grammatical, spelling, and recognition errors present. The file time of this note does not necessarily represent the time of service. Differential Diagnosis Differential diagnosis: Likely upper respiratory infection, sinusitis, viral infection and influenza Discharge Plan Discharge Clinical Impression: Influenza A Patient Disposition: Home, Self-Care Condition: Stable Instructions: Influenza (ED) Additional Instructions: your influenza test was positive today. Influenza is a virus and symptoms last 10-14 days. Continue taking [id number] Mucinex as directed on packaging. Take ibuprofen or Tylenol every 6-8 hours as needed for pain and fever. Drink at least 64 oz of water a day. Follow-up with your doctor if symptoms are not improving. Patient Language: [place] Prescriptions: No Action bupropion HCl 300 mg tablet extended release 24 hr 300 mg PO DAILY Follow-up/Referrals: Dalton,Eunice Ocasio MD [Primary Care Provider] - Stand Alone Forms: Work/School Release IP Time of Disposition: 11:34
[2024-07-09 11:36] LABS: EDCOVIDSCREEN Negative (Negative); EDINFLUASCREEN Positive (Negative); EDINFLUBSCREEN Negative (Negative)
== END 2024-07-09 11:35 | disposition home or self-care (01) ==
PROVIDERS: Emergency Provider Nurse Practitioner Family; PCP Family Medicine
DX: J10.1 Influenza due to other identified influenza virus with other respiratory manifestations (principal); Z20.822 Contact with and (suspected) exposure to COVID-19
CPT/HCPCS: 87426; 87804; 99212; G0463

== ENCOUNTER 2024-10-06 21:12 | Emergency (ER) | payer OTHER, SELFPAY ==
--- NOTE | ~2024-10-06 | US_ITS ---
EXAMINATION: US OB <= 14 weeks fetus DATE: 10/06/2024 23:16 CDT INDICATION: Vaginal bleeding with a positive test COMPARISON: None TECHNIQUE: Real-time transabdominal obstetric ultrasound. FINDINGS: Last menstrual period is given as 08/24/2024. 3 para 2 Estimated date of delivery by last menstrual period is 05/31/2025 The uterus measures 9.9 x 5.1 x 5.0 cm. A gestational sac is identified within the uterus. No perigestational hemorrhage is identified. A pole is identified, with a crown-rump length that measures 0.68 cm, corresponding to an appro ximate gestational age of 6 weeks and 4 days. cardiac activity is identified at a rate of 109 bpm. The right ovary measures 3.8 x 2.1 x 1.9 cm. The left ovary measures 3.3 x 1.8 x 1.8 cm. Estimated date of delivery by ultrasound is 05/28/2025 IMPRESSION: Single intrauterine gestation with an approximate gestational age of 6 weeks and 4 days, with c ardiac activity identified. Reviewed, dictated and finalized at location A. IMPRESSION: Single intrauterine gestation with an approximate gestational age of 6 weeks an d 4 days, with cardiac activity identified.
[2024-10-06 21:14] VITALS: BP 132/68; PULSE 78; RESP 14; TEMP 36.4; O2SAT 100
--- OUTSIDE RECORDS SUMMARY | 2024-10-06 21:14 | XMS_ITS | Data Portability ---
Author Organization [facility] Address [address] [place] [address] [place] [address] Assessment No assessment recorded. Plan of Treatment Reminders Order Date Submit Date Provider Last Modified By Organization Details Last Modified Time Details Appointments U/S OB SNEAK PEAK 2024 04:00P M ULTRASOUND Not available Not available Not available OB SCREEN 2024 04:30P M Sarah TELLEZ MD Not available Not available Not available Lab TSH, serum or plasma 2024 025 [facility] (Lab), [address] [facility], [place], [address], 08/08/2024 18:12:35 prolact in, serum 2024 025 [facility] (Lab), [address] [place], [address], 08/08/2024 18:12:35 HbA1c (hemogl obin A1c), blood 2024 025 [facility] (Lab), [address] [facility], [place], [address], 08/08/2024 18:12:35 pregnan cy test, urine 2023 024 [email or web address], [address], [address], [place], [address], 09/16/2023 11:53:12 Referral None recorde d. Procedures None recorde d. Surgeries None recorde d. Imaging US, transva ginal 2021 022 [email or web address], [address], [address], [place], [address], 11/07/2021 21:45:22 Medication Orders Bactrim DS 800 mg-160 mg tablet 2023 025 [facility], [address] [place] [address], [address], 08/05/2024 12:50:46 Bactrim DS 800 mg-160 mg tablet [email or web address] [place] [address] Pharmacy 361, [address] [place], [address], 08/05/2024 12:50:37 Patient TargetsNo targets recorded. Patient InstructionsNo instructions recorded. Reason for Referral None Reported. Results Created Date Observation Date Name Description Value Unit Range Abnormal Flag Note LastModifiedBy Organization Detail LastModifiedTime 11/02/1911/01/2021 PROLA CTIN prolactin, total 45.20 NG/mL 4.79-2 3.30 high This assay was perfo rmed using [employer] reage nts and test kits. Value s obtai brian with other assay metho ds or kits canno t be used inter morris eably . Not Available [facility] (Lab) [address], [place], [address], 11/04/2021 22:15:06 11/02/19 22 11/01/2021 HEPAT ITIS C ANTIB ROMERO SCREE N, REFLE X TO CONFI RMATI ON hepatitis C antibody Non-re active non-re active This assay was perfo rmed using [employer] reage nts and test kits. Value s obtai brian with other assay metho ds or kits canno t be used inter morris eably . Not Available [facility] (Lab) [address], [place], [address], 11/04/2021 22:15:07 11/02/19 22 11/01/2021 HEPAT ITIS B SURFA CE ANTIG EN hepatitis B surface antigen Non-re active non-re active This assay was perfo rmed using [employer] reage nts and test kits. Value s obtai brian with other assay metho ds or kits canno t be used inter morris eably . Not Available [facility] (Lab) [address] [facility], [place], [address], 11/04/2021 22:15:07 11/02/19 22 11/01/2021 HIV 1/2 ANTIG EN/AN TIBOD Y, REFLE X CONFI RMATI ON HIV Ag-Ab total quant 0.10 idx <1.00 Not Available [facility] (Lab) [address] [facility], [place], [address], 11/04/2021 22:15:07 11/02/19 22 11/01/2021 HIV 1/2 ANTIG EN/AN TIBOD Y, REFLE X CONFI RMATI ON HIV Ag-Ab total Non-re active non-re active Not Available [facility] (Lab) [address] [place], [address], 11/04/2021 22:15:07 11/02/19 22 11/01/2021 HIV 1/2 ANTIG EN/AN TIBOD Y, REFLE X CONFI RMATI ON HIV-1 antibody quant 0.10 idx <1.00 Not Available [facility] (Lab) [address] [place], [address], 11/04/2021 22:15:07 11/02/19 22 11/01/2021 HIV 1/2 ANTIG EN/AN TIBOD Y, REFLE X CONFI RMATI ON HIV-1 antibody Non-re active non-re active Not Available [facility] (Lab) [address] [place], [address], 11/04/2021 22:15:07 11/02/19 22 11/01/2021 HIV 1/2 ANTIG EN/AN TIBOD Y, REFLE X CONFI RMATI ON HIV-1 antigen (P24) quant 0.10 idx <1.00 Not Available [facility] (Lab) [address] [place], [address], 11/04/2021 22:15:07 11/02/19 22 11/01/2021 HIV 1/2 ANTIG EN/AN TIBOD Y, REFLE X CONFI RMATI ON HIV-1 antigen (P24) Non-re active non-re active Not Available [facility] (Lab) [address] [place], [address], 11/04/2021 22:15:07 11/02/19 22 11/01/2021 HIV 1/2 ANTIG EN/AN TIBOD Y, REFLE X CONFI RMATI ON HIV-2 antibody quant 0.05 idx <1.00 Not Available [facility] (Lab) [address] [place], [address], 11/04/2021 22:15:07 11/02/19 22 11/01/2021 HIV 1/2 ANTIG EN/AN TIBOD Y, REFLE X CONFI RMATI ON HIV-2 antibody Non-re active non-re active HIV testi ng is perfo rmed using Multi [employer] Immun oassa y techn ology . The final overa ll HIV Ag-Ab resul t is deter mined based on the final resul t for each indiv idual claudia te. If any of the claudia wendy has 2 or more repli cates that are REACT BINU, the final overa ll HIV Ag-Ab resul t is also React binu. A Non-R eacti ve test resul t at any point in the inves tigat ion of indiv idual subje cts does not precl ude the possi bilit y of expos ure to or infec tion with HIV-1 and/o r HIV-2 . Non-R eacti ve resul ts can occur if the quant ity of rene zachary leee nt in the sampl e is below the detec tion limit s of the assay . React binu speci mens must be inves tigat ed by addit ional , more speci fic suppl ement al tests . Speci men confi rmati on will be perfo rmed by the License Buddy HIV 1/2 Suppl ement al Assay . The perfo rmanc e of this assay has not been estab lishe d for neona wendy and the assay shoul d not be used in indiv idual s young er than 2 years of age. Not Available [facility] (Lab) [address] [facility], [place], [address], 11/04/2021 22:15:07 11/02/19 22 11/01/2021 RPR SCREE N/REF NADIRA TITER /FTA RPR screen Nonrea ctive nonrea ctive Not Available [facility] (Lab) [address] [facility], [place], [address], 11/04/2021 22:15:08 11/02/19 22 11/01/2021 HEPAT ITIS B CORE, IGM hepatitis B core IgM antibody Negati ve negati ve Not Available [facility] (Lab) [address] [facility], [place], [address], 11/04/2021 22:15:08 11/02/19 22 11/01/2021 IMAGE GUIDE D PAP, REFLE X HPV IF ASCUS ONLY image guided Pap, reflex HPV ASCUS only SEE RESULT S BELOW CASE REPOR T: Cytol ogy Gynec ologi brandie Repor t Case: [id number] Autho alexandria g Provi mandy: Paul Monterroso Colle cted: 11/01 1626 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 Elect ro jean baptiste italia d by Marilin Rodriguez ay, CT on 2021 at 10:56 AM ----- ----- ----- ----- ----- ----- ----- ----- ----- ----- ----- ----- ----- ----- ----- ----- ----- ---- COMME NT: Note: This speci men was revie wed by a Cytot echno logis t and/o r Patho logis t (as indic ated in this repor t) after evalu ation using the Thinp rep Imagi ng Syste m. CLINI BRANDIE INFOR MATIO N: Menst rual Statu s: LMP (if appli cable ): Clini brandie Histo ry/Pr eviou s Pap: Type of Neopl anahi (if appli cable ): Signi fican t Clini brandie Findi ngs: Other Histo ry: Hormo jules (if appli cable ): PAP EDUCA KARLA L NOTE: The Pap Test is a scree marilin test with an inher ent false negat binu rate. Liqui d-bas ed sampl ing may decre ase, but will not elimi martha, false negat binu resul ts. A negat binu resul t does not precl ude the prese nce and/o r devel opmen t of disea se, since the prese nce of abnor mal cells in the sampl e depen ds on the locat ion of the lesio n and sampl ing techn ique. Rene nued regul ar scree marilin is the best metho d of cance r preve ntion . If repor juan jose cytol ogic findi ng do not corre late with physi brandie and/o r histo rical findi ngs, furth er inves tigat ion is recom catina d, as ihsan preston nted. Not Available [facility] (Lab) [address], [place], [address], 11/06/2021 11:58:41 11/02/19 22 11/01/2021 TRICH OMONA S VAGIN DEB (RRNA ) trichomonas vaginalis ribosomal RNA (rrna) Negati ve negati ve Not Available [facility] (Lab) [address] [facility], [place], [address], 11/06/2021 11:58:42 11/02/19 22 11/01/2021 CT/GC (BEE) , THINP REP VIAL chlamydia trachomatis, PCR Positi ve negati ve abnormal Posit binu: Prese nce of C. trach omati s (by BEE) Chlam ydia trach omati s RNA detec juan jose by PCR. Not Available [facility] (Lab) [address], [place], [address], 11/06/2021 11:58:42 11/02/19 22 11/01/2021 CT/GC (BEE) , THINP REP VIAL neisseria gonorrhoeae, PCR Negati ve negati ve Not Available [facility] (Lab) [address] [facility] [address], [place], [address], 11/06/2021 11:58:42 11/29/19 22 11/28/2021 CT/GC AND TRICH OMONA S VAGIN DEB (RRNA ), SWAB chlamydia trachomatis, PCR Negati ve negati ve Not Available [facility] [address] [place] [address], [phone], 11/29/2021 12:23:49 11/29/19 22 11/28/2021 CT/GC AND TRICH OMONA S VAGIN DEB (RRNA ), SWAB neisseria gonorrhoeae, PCR Negati ve negati ve Not Available [facility] [address] [place] [address], [phone], 11/29/2021 12:23:49 11/29/19 22 11/28/2021 CT/GC AND TRICH OMONA S VAGIN DEB (RRNA ), SWAB trichomonas vaginalis ribosomal RNA (rrna) Negati ve negati ve Not Available [facility] [address] [place] [address], [phone], 11/29/2021 12:23:49 11/29/19 22 11/28/2021 CT/GC AND TRICH OMONA S VAGIN DEB (RRNA ), URINE chlamydia trachomatis, PCR Negati ve negati ve Not Available [facility] [address] [place] [address], [phone], 11/29/2021 12:23:50 11/29/19 22 11/28/2021 CT/GC AND TRICH OMONA S VAGIN DEB (RRNA ), URINE neisseria gonorrhoeae, PCR Negati ve negati ve Not Available [facility] [address] [place] [address], [phone], 11/29/2021 12:23:50 11/29/19 22 11/28/2021 CT/GC AND TRICH OMONA S VAGIN DEB (RRNA ), URINE trichomonas vaginalis ribosomal RNA (rrna) Negati ve negati ve Not Available [facility] [address] [place] [address], [phone], 11/29/2021 12:23:50 09/16/19 24 09/16/2023 pregn solomon test, urine HCG negati ve Not Available [facility] [address], [place], [address], 09/16/2023 11:52:57 11/08/19 22 11/07/2021 US, trans vagin al No observ ation record ed. [email or web address] [facility] [address], [place], [address], 11/07/2021 13:10:22 11/08/19 22 11/07/2021 US, trans vagin al No observ ation record ed. [email or web address] [facility] [address], [place], [address], 11/08/2021 13:56:30 11/08/19 22 10/24/2021 US, eloisa cortes, keith gomes No observ ation record ed. [email or web address] [facility] [address], [place], [address], 12/03/2021 12:37:01 Result Notes None recorded. Problems Name Problem SNOMED Code Status Onset Date Resolution Date Notes Provider Name and Address Organization Details Recorded Time Normal pregnanc y in multigra gómez [id number] 4106 Completed 201810/30/2020 Encounte r for suprvsn of normal pregnanc y, third trimeste r;Practi ce ID: 0001 Stefania cox, [facility] 11:32:07 Single live from singleto n pregnanc y [id number] Completed 201810/30/2020 Single live ;Pr actice ID: 0001 Stefania cox, [facility] 11:32:25 Insertio n of intraute rine contrace ptive device Completed 201810/30/2020 Encounte r for insertio n of intraute rine contrace ptive device;P ractice ID: 0001 Stefania cox, [facility] 11:31:57 Pregnanc y test negative [id number] Completed 201810/30/2020 Encounte r for pregnanc y test, result negative ;Practic e ID: 0001 Stefania cox, [facility] 11:32:13 Clinical finding Completed 201810/30/2020 Presence of (intraut erine) contrace ptive device;P ractice ID: 0001 Stefania cox, [facility] 11:31:27 Blood leukocyt e number above referenc e range [id number] Completed 201710/30/2020 Elevated white blood cell count, unspecif ied;Napoleon rded Elsewher e: No Locat ion: Nani kaur [facility] S ource: EHR Tooth Cutter Spur mai: N Practi ce ID: 0001 Silvino lable Time: 03:30:00 PM Stefania cox, [facility] 1 11:31:55 Pregnanc y, childbir th and puerperi um finding Completed 201710/30/2020 Encntr for suprvsn of normal first preg, third trimeste r;Record ed Elsewher e: No Locat ion: Jacquimarvin [facility] S ource: EHR Tooth Cutter Spur mai: N Practi ce ID: 0001 Silvino lable Time: 09:15:00 AM Stefania Schmitz [facility], [facility] 11:32:19 Finding of desire for urinatio n [id number] Completed 201710/30/2020 Urgency of urinatio n;Record ed Elsewher e: No [facility] S ource: EHR Tooth Cutter Spur mai: N Gabriellati ce ID: 0001 Silvino lable Time: 02:30:00 PM Stefania Schmitz [facility], [facility] 11:31:38 Acute vaginiti s [id number] Completed 201710/30/2020 Vaginiti s;Record ed Elsewher e: No Locat ion: Jacquimarvin [facility] S ource: EHR Tooth Cutter Spur mai: N Practi ce ID: 0001 Silvino lable Time: 03:30:00 PM Stefania cox, [facility] 11:31:20 Antenata l screenin g Completed 201810/30/2020 Encounte r for antenata l screenin g for macrosom ia;Recor ded Elsewher e: No Locat ion: Nani kaur [facility] S ource: EHR Tooth Cutter Spur mai: N Practi ce ID: 0001 Silvino lable Time: 03:30:[address] [facility] 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 11:32:29 Pregnanc y, childbir th and puerperi um finding Completed 201710/30/2020 Encounte r for supervis ion of normal 1st pregnanc y, 2nd trimeste r;Record ed Elsewher e: No Locat ion: Nani kaur [facility] S ource: EHR Tooth Cutter Spur mai: N Gabriellati ce ID: 0001 Silvino lable Time: 03:00:00 PM Stefania Schmitz [facility] 11:32:17 Pelvic and perineal pain [id number] Completed 201710/30/2020 Pelvic and perineal pain;Rec orded Elsewher e: No Locat ion: Nani kaur [facility] S ource: EHR Tooth Cutter Spur mai: N Gabriellati ce ID: 0001 Silvino lable Time: 02:30:[address] [facility] 11:32:09 Lochia finding Completed 201710/30/2020 Encounte r for routine postpart um follow-u p;Record ed Elsewher e: No Locat ion: Nestor natasha [facility] S ource: EHR Tooth Cutter Spur mai: N Gabriellati ce ID: 0001 Silvino lable Time: 03:45:[address] [facility] 11:32:05 Secondar y amenorrh ea [id number] Completed 201710/30/2020 Secondar y amenorrh ea;Recor ded Elsewher e: No Locat ion: [facility] S ource: EHR Tooth Cutter Spur mai: N Practi ce ID: 0001 Silvino lable Time: 02:00:00 PM Stefania cox, [facility] 1 11:32:23 Implanta tion of subcutan eous contrace ptive Completed 201610/30/2020 Encounte r for initial prescrip tion of implanta ble subderma l contrace ptive;Re corded Elsewher e: No Locat ion: [facility] S ource: EHR Tooth Cutter Spur mai: N Practi ce ID: 0001 Silvino lable Time: 05:45:[address] [facility] 11:31:59 Gonorrhe a of lower genitour inary tract [id number] 181955 Completed 201710/30/2020 Gonococc al infectio n of lower genitour inary tract, unsp;Rec orded Elsewher e: No Locat ion: [facility] S ource: EHR Tooth Cutter Spur mai: N Practi ce ID: 0001 Silvino lable Time: 02:30:00 PM Stefania cox, [facility] 11:31:[address] Concept Completed 201710/30/2020 Encntr for routine child health exam w/o abnormal findings ;Recorde d Elsewher e: No Locat ion: [facility] S ource: EHR Tooth Cutter Spur mai: N Practi ce ID: 0001 Silvino lable Time: 02:00:[address] [facility] 11:32:27 Amenorrh ea [id number] Completed 201610/30/2020 Amenorrh ea, unspecif ied;Prac anna ID: 0001 Stefania cox, [facility] 11:31:22 Pregnanc y detectio n examinat ion Completed 201710/30/2020 Encounte r for pregnanc y test, result positive ;Practic e ID: 0001 Stefania cox, [facility] 11:32:11 Complica tion of pregnanc y, childbir th and/or puerperi um [id number] Completed 201710/30/2020 Oth diseases and conditio ns compl preg/chl dbrth;Pr actice ID: 0001 Stefania Schmitz [facility], [facility] 11:32:31 Finding of contents of cervix [id number] Completed 201710/30/2020 Weeks of gestatio n of pregnanc y not specifie d;Practi ce ID: 0001 Stefania Schmitz [facility] 11:31:36 Pregnanc y, childbir th and puerperi um finding Completed 201710/30/2020 Encntr for suprvsn of normal first preg, first trimeste r;Practi ce ID: 0001 Stefania Schmitz [facility], [facility] 11:32:15 Antenata l screenin g for malforma tion Completed 201710/30/2020 Encounte r for antenata l screenin g for malforma tions;Pr actice ID: 0001 Stefania Schmitz [facility], [facility] 11:31:25 Complica tion occurrin g during pregnanc y Completed 201710/30/2020 Infectio n oth prt genitl trct in pregnanc y, third trimeste r;Practi ce ID: [address] [facility] 11:31:30 Gestatio n period, 33 weeks [id number] Completed 201710/30/2020 33 weeks gestatio n of pregnanc y;Practi ce ID: 0001 Stefania Schmitz [facility], [facility] 11:31:44 Dysuria [id number] Completed 201710/30/2020 Dysuria; Practice ID: 0001 Stefania cox, [facility] 11:31:34 Gestatio n period, 34 weeks [id number] Completed 201710/30/2020 34 weeks gestatio n of pregnanc y;Practi ce ID: 0001 Stefania cox, [facility] 11:31:46 Disorder of biliary tract [id number] Completed 201710/30/2020 Liver and biliary tract disord in pregnanc y, third trimeste r;Practi ce ID: 0001 Stefania cox, [facility] 11:31:32 Liver disorder in pregnanc y - not delivere d [id number] Completed 201710/30/2020 Liver and biliary tract disord in pregnanc y, third trimeste r;Practi ce ID: 0001 Stefania cox, [facility] 11:32:02 Lacerati on of female perineum Completed 201710/30/2020 Second degree perineal lacerati on during delivery ;Practic e ID: 0001 Stefania cox, [facility] 11:32:01 Gestatio n period, 39 weeks [id number] Completed 201710/30/2020 39 weeks gestatio n of pregnanc y;Practi ce ID: 0001 Stefania cox, [facility] 11:31:49 Hemorrha gic complica tion of pregnanc y [id number] Completed 201810/30/2020 Other hemorrha ge in early pregnanc y;Practi ce ID: 0001 Stefania cox, [facility] 11:31:53 Uterine size for dates discrepa ncy Completed 201810/30/2020 Uterine size-micki e discrepa ncy, first trimeste r;Practi ce ID: 0001 Stefania Schmitz [facility], [facility] 11:32:34 Gestatio n less than 9 weeks [id number] Completed 201810/30/2020 Less than 8 weeks gestatio n of pregnanc y;Practi ce ID: 0001 Stefania Schmitz [facility], [facility] 11:31:42 Furuncle [id number] Completed 201810/30/2020 Boil;Rec orded Elsewher e: No Locat ion: [facility] S ource: EHR Tooth Cutter Spur mai: N Practi ce ID: 0001 Silvino lable Time: 11:45:00 AM Stefania Schmitz [facility], [facility] 11:31:40 Rubella screenin g status [id number] Completed 201710/30/2020 Encounte r for antenata l screenin g, unspecif ied;Napoleon rded Elsewher e: No Locat ion: [facility] S ource: EHR Tooth Cutter Spur mai: N Practi ce ID: 0001 Silvino lable Time: 10:00:00 AM Stefania Schimtz [facility], [facility] 11:32:21 Notes:Unsp infct of urinary tract in , third trimester Practice ID: 0001 Problem Notes None recorded. Procedures Surgical History Date Name Laterality Status Provider Name and Address Organization Details Recorded Time 4 IUD Removal completed СЕРГЕЙ Hob[facility] [address], [place], [address], [place] [facility] 09/16/2023 12:17:52 Imaging Results Imaging Date Name Status LastModified by Organization Details LastModified Time 11/07/2021 US, transvaginal completed [email or web address], [place], [address], 11/07/2021 13:10:22 11/07/2021 US, transvaginal completed [email or web address] [facility] [address], [place], [address], 11/08/2021 13:56:30 10/24/2021 US, breast, bilateral completed [email or web address] [facility] [address], [place], [address], 12/03/2021 12:37:01 Procedure Notes None recorded. Medical Equipment None Reported. Allergies No known drug allergies Medications Name Sig Start Date Stop Date Status Note LastModified by Organization Details LastModified Time Mirena 21 mcg/24 hr (up to 8 years) 52 mg intrauter ine device as directed 09/15 completed Prescrib ed Elsewher e: No [facility]at [facility] By: [email or web address] z Cortes ter DateTime : 03/25/20 19 02:00:00 PM Not Available Not Available Not Available trazodone 50 mg tablet TAKE 1/2 TO 1 (ONE-NELSON F TO ONE) TABLET BY MOUTH EVERY DAY AT BEDTIME 11/01 completed Not Available Not Available Not Available hydrocodo ne 5 mg-acetam inophen 325 mg tablet 12/01 completed Not Available Not Available Not Available Monistat 7 2 % vaginal cream insert 1 applicat orful by vaginal route every day at bedtime 01/13 completed Prescrib ed Elsewher e: No Locat ion: Nani kaur [facility] odify By: [email or web address] Encounte r DateTime : 12/25/19 18 03:30:00 PM Not Available Not Available Not Available ceftriaxo ne 250 mg solution for injection inject 1 (500MG) by intramus cular route every day for 2 days 06/24 completed Prescrib ed Elsewher e: No Locat ion: [facility] odify By: [email or web address] Kolb ter DateTime : 06/23/19 18 02:30:00 PM Not Available Not Available Not Available Zithromax Z-James 250 mg tablet take 2 tablet by oral route every day for 1 day then 1 tablet (250 mg) by oral route once daily for 4 days 06/27 completed Prescrib ed Elsewher e: No [facility] By: evita brice DateTime : 06/23/19 18 02:30:00 PM Not Available Not Available Not Available sulfameth oxazole 800 mg-trimet hoprim 160 mg tablet TAKE 1 TABLET BY MOUTH EVERY 12 HOURS FOR 7 DAYS 08/05 completed Not Available Not Available Not Available triamcino lone acetonide 0.1 % topical cream APPLY CREAM EXTERNAL LY TO AFFECTED AREA TWICE DAILY FOR 7 DAYS 09/15 completed Not Available Not Available Not Available amoxicill in 500 mg tablet take 1 tablet by oral route 3 times every day for 10 days 12/25 completed Prescrib ed Elsewher e: No Locat ion: [facility] odify By: freddie herrera DateTime : 12/17/19 19 11:45:00 AM Not Available Not Available Not Available ondansetr on 8 mg disintegr ating tablet DISSOLVE 1 TABLET IN MOUTH A ONE TIME DOSE active Not Available Not Available No t Available famotidin e 20 mg tablet TAKE 1 TABLET BY MOUTH TWICE DAILY 09/15 completed Not Available Not Available Not Available trazodone 100 mg tablet TAKE 1 TABLET BY MOUTH ONCE DAILY 09/15 completed Not Available Not Available Not Available Flagyl 500 mg tablet take 1 tablet by oral route every 12 hours 01/13 completed Prescrib ed Elsewher e: No [facility] By: [email or web address] Encounosito r DateTime : 12/30/19 18 05:01:36 PM Not Available Not Available Not Available baclofen 10 mg tablet TAKE 1 TABLET BY MOUTH THREE TIMES DAILY NEEDED 09/15 completed Not Available Not Available Not Available neomycin- polymyxin -dexameth 3.5 mg/mL-10, 000 unit/mL-0 .1% eye drops INSTILL 1 DROP INTO EACH EYE EVERY 6 HOURS FOR 7 DAYS 09/06 /2023 completed Not Available Not Available Not Available promethaz ine 25 mg tablet TAKE 1 TABLET BY MOUTH 4 TIMES DAILY NEEDED FOR NAUSEA FOR VOMITING 01/21 completed Not Available Not Available Not Available cabergoli ne 0.5 mg tablet TAKE 1/2 (ONE-NELSON F) TABLET BY MOUTH TWICE A WEEK active Not Available Not Available No t Available mupirocin 2 % topical ointment APPLY TOPICALL Y TO THE AFFECTED AREA TWICE DAILY 10/30 completed Not Available Not Available Not Available ibuprofen 600 mg tablet TAKE 1 TABLET BY MOUTH THREE TIMES DAILY NEEDED FOR PAIN AND FEVER 01/21 completed Not Available Not Available Not Available methylpre dnisolone 4 mg tablets in a dose pack TAKE BY MOUTH DIRECTED ON INSIDE OF PACKAGE 10/30 completed Not Available Not Available Not Available hydroxyzi ne HCl 10 mg tablet TAKE 1 TABLET BY MOUTH THREE TIMES DAILY NEEDED FOR ANXIETY active Not Available Not Available No t Available sertralin e 50 mg tablet take 1 tablet by oral route every day 10/30 completed Prescrib ed [facility] e: Yes Loca tion: [facility] odify By: [email or web address] z Encoun ter DateTime : 03/11/20 03:00:00 PM Not Available Not Available Not Available doxycycli ne hyclate 100 mg tablet Take 1 tablet twice a day by oral route for 7 days. 11/28 completed Not Available Not Available Not Available naproxen 500 mg tablet TAKE 1 TABLET BY MOUTH TWICE DAILY 10/30 completed Not Available Not Available Not Available azithromy shanna 500 mg tablet Take 2 tablets every day by oral route for 1 day. 11/28 completed Not Available Not Available Not Available escitalop pallavi 10 mg tablet TAKE 1 TABLET BY MOUTH ONCE DAILY AT BEDTIME FOR 30 DAYS 08/05 completed Not Available Not Available Not Available cyclobenz aprine 5 mg tablet TAKE 1 TABLET BY MOUTH THREE TIMES DAILY NEEDED FOR 10 DAYS 10/30 completed Not Available Not Available Not Available bupropion HCl XL 300 mg 24 hr tablet, extended release TAKE 1 TABLET BY MOUTH ONCE DAILY 09/15 completed Not Available Not Available Not Available bupropion HCl XL 150 mg 24 hr tablet, extended release TAKE 1 TABLET BY MOUTH ONCE DAILY IN THE MORNING FOR 30 DAYS 08/05 completed Not Available Not Available Not Available chlorhexi dine gluconate 0.12 % mouthwash RINSE 15 ML IN MOUTH TWICE DAILY 09/15 completed Not Available Not Available Not Available [employer] 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 11:07:08 Date Recorded Body height Body mass index (BMI) Body weight Systolic blood pressure Diastolic blood pressure Provider Name and Address Organization Details Last Updated DateTime 01/21/2023 160.02 cm 25 kg/m2 72974.52 g 105 mm[Hg] 67 mm[Hg] [facility] 3 15:15:49 Date Recorded Body height Body mass index (BMI) Body weight Systolic blood pressure Diastolic blood pressure Provider Name and Address Organization Details Last Updated DateTime 09/16/2023 160.02 cm 25.3 kg/m2 06778.71 g 117 mm[Hg] 82 mm[Hg] Emily Hernandez [facility] 4 11:47:41 Date Recorded Body height Body mass index (BMI) Body weight Systolic blood pressure Diastolic blood pressure Provider Name and Address Organization Details Last Updated DateTime 08/05/2024 160.02 cm 27.8 kg/m2 27644 g 98 mm[Hg] 61 mm[Hg] Kathy Basilio [facility] 5 12:50:18 Social History Question Answer Notes LastModified by Organizat ion Details LastModified Time Tobacco Smoking Status Never Smoker Stefania Schmitz [facility] 06/28/2021 14:31:31 Do You Have An Advance Directive? No [email or web address] Information n ot available 06/28/2021 If You Are , What Was Your Level Of Alcohol Consumption Prior To ? None Information not available 06/28/2021 Are You Blind Or Do You Have Difficulty Seeing? No [email or web address] Information n ot available 10/30/2020 What Is Your Level Of Caffeine Consumption? Occasional [email or web address] Information not available 10/30/2020 In The 14 Days Before Symptom Onset, Have You Had Close Contact With A Laboratory-confirm ed COVID-19 While That Case Was Ill? No [email or web address] Information n ot available 10/30/2020 In The 14 Days Before Symptom Onset, Have You Had Close Contact With A Person Who Is Under Investigation For COVID-19 While That Person Was Ill? No [email or web address] Information not available 10/30/2020 Have You Been To An Area Known To Be High Risk For COVID-19? No [email or web address] Information not available 10/30/2020 Are You Deaf Or Do You Have Serious Difficulty Hearing? No [email or web address] Information not available 10/30/2020 What Type Of Diet Are You Following? REGULAR Information n ot available 10/30/2020 What Is The Highest Grade Or Level Of School You Have Completed Or The Highest Degree You Have Received? [id number] [email or web address] Information not available 06/28/2021 Are There Any Guns Present In Your Home? No [email or web address] Information not available 06/28/2021 What Was The Date Of Your Most Recent Tobacco Screening? 06/28/2021 [email or web address] Information not available 06/28/2021 How Many Children Do You Have? 2 [email or web address] Information not available 06/28/2021 Have You Ever Been Counseled For Unhealthy Alcohol Use? No [email or web address] Information not available 06/28/2021 Do You Use Protection During Sex? No [email or web address] Information not available 06/28/2021 Do You Use Your Seat Belt Or Car Seat Routinely? Yes Information not available 10/30/2020 Do You Have Smoke And Carbon Monoxide Detectors In Your Home? Yes [email or web address] Information not available 10/30/2020 How Much Tobacco Do You Smoke? No [email or web address] Information not available 12/02/2019 Do You Use Sunscreen Routinely? Yes [email or web address] Information not available 10/30/2020 Has Tobacco Cessation Counseling Been Provided? No [email or web address] Information not available 06/28/2021 Have You Used IV Drugs? No [email or web address] Information not available 06/28/2021 Do You Have Difficulty Walking Or Climbing Stairs? No [email or web address] Information not available 06/28/2021 Sex: Unknown Functional Status Question Answer Note LastModified by Organizat ion Details LastModified Time Do you use any illicit or recreational drugs? No [email or web address] Information not available 10/30/2020 What is your level of alcohol consumption? Occasional Information not available 10/30/2020 Do you or have you ever used smokeless tobacco? Never used smokeless tobacco [email or web address] Information not available 06/28/2021 Are you able to walk? YESWOREST [email or web address] Information not available 10/30/2020 Are you able to care for yourself? Yes [email or web address] Information not available 06/28/2021 Do you have difficulty dressing or bathing? No Information not available 06/28/2021 Do you or have you ever used e-cigarettes or vape? Never used electronic cigarettes [email or web address] Information not available 06/28/2021 What is your exercise level? Occasional [email or web address] Information not available 12/02/2019 Mental Status Question Answer Note LastModified by Organization D etails LastModified Time Do you feel stressed (tense, restless, nervous, or anxious, or unable to sleep at night)? [id number] [email or web address] Information not available 10/30/2020 Family History Relationship Description Onset Age of this Age Resolved Age Notes LastModified by Organization Details LastModified Time Father Kurtis obando Not available 12/01 15:51:26 Maternal Grandmother Malignant tumor of colon [email or web address] Not available 12/01 15:51:35 Maternal Grandmother Malignant tumor of breast Not available 12/01 15:51:45 Medical History Condition Response Allergies (Food, seasonal, environmental ) Y Other N Breast Cancer N Drug/Latex Allergies/Reactions N Blood Transfusion N Dermatologic Disorders N Lung Disease N Defects or Inherited Disease N Breast Problem N Gestational Diabetes N Hematologic disorders N Anesthesia Complications N History of STI N Deep Vein Thrombosis N Polycystic ovary syndrome N Anxiety Disorder Y Autoimmune disease N Arthritis N Infertility N Polyps N Acid Reflux (GERD) Y History of abnormal pap N Cancer N Stroke N Varicosities N Neurologic/Epilepsy N Endometriosis N High Cholesterol N Headaches N Fibromyalgia N Kidney Disease N Heart Problems N Kidney or Bladder Problems N Thyroid Problems N GI Problems N Eating Disorder N Anemia Y Art (IVF or FET) N Psychiatric Illness N Ovarian Cancer N Diabetes N Pulmonary (TB, Asthma) N Hepatitis/Liver Disease N No Past Medical History N Eczema N Urinary Tract Infection N Abuse/Domestic Violence N Asthma Y Trauma/Violence N Depression/ depression Y Heart Disease N Pre-Eclampsia N Hypertension N Osteoporosis N Thrombophilias N Gynecological History Statement/Question Response Date of Last Mammogram Flow Light Date of LMP 07/28/2024 N Was last menstrual period normal N STIs/STDs N Date of Last Colonoscopy Abnormal Pap N On BCP's at Conception? N HPV Vaccine N Colposcopy Duration of Flow (days) 2 Current Control Method Condoms Age at First Child 17 Are cycles usually normal N Most Recent Bone Density Sexually Active? Y Menses Monthly N Age of first menstrual cycle 14 Date of Last Pap Smear Sexual Problems? N LMP Approximate N Obstetrics History GPAL:G 2 P 2 0 0 2 Type Value Full Term 2 Living 2 Total 2 Past Encounters Encounter ID Performer Location Encounter Start Date Encounter Closed Date Diagnosis/Indication Diagnosis SNOMED-CT Code Diagnosis ICD10 Code Diagnosis Note [id number] Indy Salinas CNM [facility] [address],[place] [address] 12/02/2019 15:36:42 12/02/2019 16:19:50 Eruption 619177264 R21 rash on face near eye use lotrisone on nose away from eyes, medrol dose pack if does not resolve see pcp Gynecologi c examination 34966241 Z01.419 [id number] Indy Salinas CNM [facility] [address],[place] [address] 10/30/2020 11:11:36 10/30/2020 11:59:27 IUD check 057329643 Z30.431 [id number] Indy Salinas CN[facility] [address],[place] [address] 06/28/2021 13:58:55 06/28/2021 14:52:37 IUD check 233231950 Z30.431 Irregular periods 426818 07 N92.6 [id number] Sharri Vasquez [place] [address],[place] [address] 09/16/2023 11:42:49 09/16/2023 12:23:44 Contraception care management 458033802 Z30.9 Removal of intrauterine contraceptive device done [id number] 89702 Z30.432 Pt desires IUD removalUPT (-)r/b reviewed, consent reviewed and signedIUD removed (see procedure note)encou raged daily PNV Reproducti ve care management 563216628 Z31.9 Furuncle of vulva 946575 006 N76.4 rx sent for bactrimvul rosana care guidelines discusseda void waxing, trimming for hair removal recommende d insteadque stions answered, precaution s reviewed Time spent in visit is a total of 30 mins with at least 50% of visit consisting of counseling and review of plan of care. [id number] Darryn Tellez MD [facility] [address],[place] [address] 07/09/2021 16:54:13 07/09/2021 17:50:58 Irregular intermenstrual bleeding 17500651 N92.1 R10.2 [id number] Sharri Vasquez [facility] [address],[place] [address] 11/01/2021 15:22:11 11/01/2021 17:35:41 Discharge from nipple 05382287 N64.52 Venereal d isease screening 980461415 Z11.3 Sexually t ransmitted infectious disease 1093817 A64 Gynecologi c examination 44693218 Z01.419 Z11.3 Z11.8 Take Calcium with Vitamin D 1200mg daily if not receiving in daily diet. It is strongly advised to have an annual flu shot and up can obtain at most pharmacies . If you have not had a TDap shot in the last 10 years you should obtain one as well. Discussed with patient & provided with informatio n regarding Gardisil vaccine to prevent the 4 strains for HPV that cause cervical cancer if under age 26. Encourage safe sexual practices, to use condoms and limit partners if not already in a monogamous relationsh ip. Do monthly self breast exams. Have mammogram yearly or every other year depending on family history. BRCA testing is now available for patients with strong genetic history of female cancer. If interested contact the office. Engage in daily exercise of low impact aerobic exercise 45-60 minutes 4-5 times weekly. Avoid tobacco and illicit drugs as well as using moderation with alcohol intake less than 1-2 8 oz beverages daily. This lifestyle behavior pattern will lead to less health conditions and longer life span. If BMI greater than 25 weight watchers or dietary consult advised. Patient received above instructio ns, and questions have been answered. If you have any questions please call or respond to this email. Patient was made aware of the patient portal and may obtain a paper copy of today's plan if desired. WWENipple discharge, d/c'd breastfeed ing 3 years ago. Has been having nipple discharge ever since. Notices it more with hot showers / hot teas. She had a breast u/s done through PCP, does not know results yet. She will send us a copy of the breast u/s when available, to avoid nipple stimulatio n for now. Will await u/s results, prolactin level ordered.Mi juan IUD, Inserted 03/25/2019. Happy with this control. No issuesStri ng not visualized on exam today, pelvic u/s ordered to assess IUD placement. First pap done todaySTI testing added to papBlood STI testing orderedRT in 1 year for WWE or sooner if needed [id number] Darryn Tellez MD [facility] [address] [address] 11/07/2021 12:11:21 11/07/2021 13:34:16 Mechanical complication of intrauterine contraceptive device 002213098 T83.39XA [id number] СЕРГЕЙ [facility] [address],[place] [address] 11/28/2021 10:58:10 11/28/2021 11:51:40 Chlamydial infection 884846517 A74.9 STI endocervic al testing sentTo await results and can resume intercours e once its been 10 days past partners last dose of medication encouraged her to attend endocrinol ogist appointmen t on Thursday, 12/02, for evaluation of hyperprola ctinemia. We discussed endocrinol ogist will likely order pituitary imaging. Had breast u/s through PCP, still await results. Time spent in visit is a total of 20 mins with at least 50% of visit consisting of counseling and review of plan of care. Hyperprolactinemia 64387 2004 E22.1 [id number] СЕРГЕЙ [facility] [address],[place] [address] 01/21/2023 14:57:44 01/21/2023 15:50:10 Abscess of vulva 71661240 N76.4 cx sentrx for bactrim BID x 7 days - r/b/a reviewedvu lvar care guidelines discussedv aginitis / STI panel sentwill update patient with results when availables afe sexual practices encouraged /discussed RTC if symptoms persist past treatment, precaution s reviewed Time spent in visit is a total of 25 mins with at least 50% of visit consisting of counseling and review of plan of care. Vaginal discharge 502977 006 N89.8 Venereal d isease screening 434868482 Z11.3 [id number] VIPIN HERRERA MD [facility] [address],[facility] [address] 08/05/2024 12:03:49 08/08/2024 11:19:16 Idiopathic hyperprolactinemia 008219312 E22.1 - Differenti al diagnosis of cause of infertilit y includes: hyperprola ctinemia, male factor- We discussed the potential causes of infertilit y and rationale behind testing. We also discussed her reproducti ve potential in the context of her age as well as the risk of aneuploidy .- Will repeat prolactin, TSH and hemoglobin A1c- The patient was asked to have her collect a semen analysis if they cross 12 months of TTC without success and her labs are normal- Discussed the fertile time of the cycle and options for tracking ovulation, including ovulation predictor kits and basal body temperatur e.-- Discussed timed intercours e every other day starting on Day 6 of period through to the next period.-- Discussed using LH surge kits, usually accurate and would recommend intercours e that day and the next day, then can wait until next cycle. Health Concerns Section Related Observation LastModified by Organization Detai ls LastModified Time None Recorded Concern Status LastModified by Organization Details LastModified Time None Recorded Advance Directives Directive N: Payers Encounter Date Sequence Insurance Name Policy Number Policy Viera Covered Member ID Viera Member ID Guarantor Name 11/07/2021 1 [employer] ON OR AFTER 11/15/20 (MEDICAID REPLACEMENT - HMO) Erika Wilkinson [id number] Erika Wilkinson 11/28/2021 1 [employer] ON OR AFTER 11/15/20 (MEDICAID REPLACEMENT - HMO) Erika Wilkinson [id number] Erika Wilkinson 01/21/2023 1 [employer] ON OR AFTER 11/15/20 (MEDICAID REPLACEMENT - HMO) Erika Wilkinson [id number] Erika Wilkinson 09/16/2023 1 [employer] ON OR AFTER 11/15/20 (MEDICAID REPLACEMENT - HMO) Erika Wilkinson [id number] Erika Wilkinson 08/05/2024 1 [employer] ON OR AFTER 11/15/20 (MEDICAID REPLACEMENT - HMO) Erika Wilkinson [id number] Erika Wilkinson Notes Date Note Type Note Provider Name and Address Organization Details Recorded Time 2 text/html Here today for TANESHA for chlamydia infectionHad N/V with doxy, rx then sent for azithromycin. Completed that with no issues.Partner was tested and treatedHas not had intercourse since treatmentHas appointment with endocrinology on 12/02/2021 for elevated prolactin СЕРГЕЙ [facility] [address], [place], [address], [place] - [facility] 11/28/2021 11:37:46 09/06/202 3 text/html 22yopresents for evaluation of vaginal symptomswhite clear d/c x 1 week, discomfort with IC pimple on left labia that drained a few days ago - uncomfortablemirena IUD for BC, denies any new partnersneg n/v/fneg pelvic painneg urinary symptomsnormal bowel movements СЕРГЕЙ [facility] [address], [place], [address], [facility] 01/21/2023 15:47:33 4 text/html [id number] for mirena IUD removalmirena IUD inserted 03/25/2019would like removal to TTC a few pimple like areas on mons, noticed after waxingneg drainageneg n/v/fneg flu-like symptomsneg d/c or odorsneg pelvic pain she would like STI testing today СЕРГЕЙ [facility] [address], [place], [address], [facility] 09/16/2023 12:21:48 5 text/html Presents today for discussion of infertility. She and her partner have been actively been trying to conceive for 10 months. They have used the following methods to help conceive: cycle tracking The patient reports she has regular menstrual periods. She denies a history of extremely painful periods. Was previously on cabergoline for hyperprolactinemia. Stopped in March as she was not sure that it was safe to conceive with. Has not had pituitary imaging. Seeing endocrinology. Previous history includes: 2 uncomplicated SVDs. No treatment required for conception of these pregnancies. Her current partner is not the father of her previous children. He has fathered no children from previous relationships. He denies a history of childhood illnesses or cancers. He denies family history of autism/MR and infertility. He has not completed a semen analysis VIPIN HERRERA MD [address], [place], [address], [facility] 08/05/2024 17:32:42 OBGyn Episode Ob Episode Information Episode Created Date Number of Fetuses Patient Bloodtype Patient rh Status Prepregnancy Weight lbs Domestic Partner Domestic Partner Phone Father Name Campaign Assistant Status 12/02/19 20 1 CLOSED Fetus Data First Name Last Name Admitted to NICU Weight (g) Sex Living Outcome Pediatric Complications Fetus ID Race Codes Race Delivery Type 3345.24 1 M Full Term [id number] Vaginal Delivery Mckinley Calculation Initial Mckinley Date Initial Exam Date Initial Exam Provider Initial Ultrasound Date Last Menstrual Period Date Ultra Sound Weeks Gestation 0 Eighteen To Twenty Week Mckinley Update Ultra Sound Date Fundal Height At Umbil Quickening Date Ultra Sound Latest Weeks Gestation Final Mckinley Confirmed By Final Cmkinley Confirmed Date Final Mckinley Date Ultra Sound Latest Days Gestation 0 0 Menstrual History Last Menstrual Date Menses Monthly On Bcp Conception Prior Menses Frequency Hcg Plus Date Menarche Onset Age Delivery Information Delivery Date Delivery Type Labor Anesthesia Weeks Gestation Incision Type Labor Labor Length Hrs Delivered By Post Complications Tubal Sterilization Discharge Date Comments 9 38.4 Discharge Information Feeding Method Contraceptive Method Maternal HG B and HCT Levels Ob Episode Information Episode Created Date Number of Fetuses Patient Bloodtype Patient rh Status Prepregnancy Weight lbs Domestic Partner Domestic Partner Phone Father Name Campaign Assistant Status 12/02/19 20 1 CLOSED Fetus Data First Name Last Name Admitted to NICU Weight (g) Sex Living Outcome Pediatric Complications Fetus ID Race Codes Race Delivery Type 3401.94 F Full Term [id number] Vaginal Delivery Mckinley Calculation Initial Mckinley Date Initial Exam Date Initial Exam Provider Initial Ultrasound Date Last Menstrual Period Date Ultra Sound Weeks Gestation 0 Eighteen To Twenty Week Mckinley Update Ultra Sound Date Fundal Height At Umbil Quickening Date Ultra Sound Latest Weeks Gestation Final Mckinley Confirmed By Final Mckinley Confirmed Date Final Mckinley Date Ultra Sound Latest Days Gestation 0 0 Menstrual History Last Menstrual Date Menses Monthly On Bcp Conception Prior Menses Frequency Hcg Plus Date Menarche Onset Age Delivery Information Delivery Date Delivery Type Labor Anesthesia Weeks Gestation Incision Type Labor Labor Length Hrs Delivered By Post Complications Tubal Sterilization Discharge Date Comments 8 39.4 CHOLESTA S IS Discharge Information Feeding Method Contraceptive Method Maternal HG B and HCT Levels
--- OUTSIDE RECORDS SUMMARY | 2024-10-06 21:14 | XMS_ITS | Clinical Summary ---
Author Organization [facility] Address [address] [place] [address] Care Team Providers Care Dehydrator Tender Name Role Phone Eunice Hoffman MD Primary Care Provider [phone] Source Comments [facility],non-owned Affiliates and Associated Physician Practices is amultiple site organization consisting of ambulatory clinics and hospital sitesin [place], [place], [place] and [place]. This disclosure is being madepursuant to the Care Everywhere program and may not contain all information available regarding this patient. Last updated 18.[facility] [employer] Allergies No known active allergies Medications * Be aware that medications may not be up to date on this document. Alwaysverify current medications with the patient. ibuprofen (MOTRIN) 200 MG tablet Take 400 mg by mouth every 8 hours as needed for Pain. Active sulfamethoxazole -trimethoprim (BACTRIM DS; SEPTRA DS) 800-160 MG tablet Take 1 Tab by mouth 2 times daily. Active hydrocodone-acet aminophen (NORCO) 5-325 MG tablet Take 1 Tab by mouth every 4 hours as needed for Pain. 20 Tab 0 02/11/2014 Active Vit-Fe Fumarate-FA ( VITAMIN) 28-0.8 MG tablet Take 1 Tab by mouth once daily Active Norgestim-Eth Estrad Triphasic (TRI-SPRINTEC PO) Active Active Problems Problem Noted Date Diagnosed Date Generalized headache 04/24/2022 Social History Tobacco Use Types Packs/Day Years Used Date Smoking Tobacco: Never Tobacco Cessation:Counseling Given: Not Answered Alcohol Use Standard Drinks/Week Comments Yes 0 (1 standard drink = 0.6 oz pur e alcohol) occ Comments Unknown Sex and Gender Information Value Date Recorded Sex Assigned at Not on file Legal Sex Female 5:40 AM WOOD FINISHER APPRENTICE Gender Identity Not on file Sexual Orientation Not on file Last Filed Vital Signs Vital Sign Reading Time Taken Comments Blood Pressure 103/55 04/24/2022 12:19 PM WOOD FINISHER APPRENTICE Ri ght arm Pulse 102 04/24/2022 12:14 PM WOOD FINISHER APPRENTICE Temperature 36.8 C (98.3 F) 04/24/2022 12:14 PM WOOD FINISHER APPRENTICE Respiratory Rate 17 04/24/2022 12:14 PM WOOD FINISHER APPRENTICE Oxygen Saturation 99% 04/24/2022 12:14 PM WOOD FINISHER APPRENTICE Inhaled Oxygen Concentration - - Weight 65.8 kg (145 lb) 04/24/2022 9:44 AM WOOD FINISHER APPRENTICE Height 157.5 cm (5' 2 ) 04/24/2022 9:44 AM WOOD FINISHER APPRENTICE Body Mass Index 26.52 04/24/2022 9:44 AM WOOD FINISHER APPRENTICE Plan of Treatment Health Maintenance Due Date Last Done Comments PAP SMEAR 2000 HIV SCREENING 07/28/2015 HPV VACCINE (1 - 3-dose series) 07/28/2015 HEPATITIS C SCREENING 07/23/2018 DTAP/TDAP/TD VACCINES (1 - Tdap) 07/28/2019 HEPATITIS B VACCINE (1 of 3 - 19+ 3-dose series) 07/28/2019 CHLAMYDIA/GONORRHEA SCREENING 11/28/2022 11/28/2021, 11/28/2021 COVID-19 VACCINE ( season) 2024 04/15/2022, 04/17/2021, 08/17/2020, Additional history exists DEPRESSION SCREENING 05/18/2024 INFLUENZA VACCINE (Season Ended) 2025 04/15/2022, 01/22/2021, 07/21/2019, Additional history exists ZOSTER VACCINE (1 of 2) 2050 HIB VACCINE Aged Out No longer eligi ble based on patient's age to complete this topic MENINGOCOCCAL (Group B) VACCINE SHARED DECISION-MAKING Aged Out No longer eligible based on patient's age to complete this topic MENINGOCOCCAL GROUPS A/C/Y/W VACCINE Aged Out No longer eligible based on patient's age to complete this topic PNEUMOCOCCAL VACCINE Aged Out No long er eligible based on patient's age to complete this topic Insurance [facility] [employer] Care Teams Dehydrator Tender Relationship Specialty Start Date End Date Eunice Hoffman MD [address] [place] [address] [place] [phone] PCP - General Family Medicine 08/01/13
[2024-10-06 21:32] LABS: Basophils Percent Auto 0.1 % (0.2-1.2); Eosinophils Absolute Auto 0.1 K/mm3 (0-0.3); Hematocrit 42.9 % (37.0-47.0); Hemoglobin 13.7 g/dL (12.0-15.0); Immature Granulocyte Absolute 0.01 K/mm3 (0.00-0.031); Immature Granulocyte Percent A 0.1 % (0-0.5); Lymphocytes Absolute Auto 2.11 K/mm3 (0.9-3.2); Lymphocytes Percent Auto 31.6 % (18.3-44.2); Mean Corpuscular HGB Conc 31.9 g/dl (32-36); Mean Corpuscular Hemoglobin 28.6 pg (26-34); Mean Corpuscular Volume 89.6 fl (80-100); Monocytes Absolute Auto 0.4 K/mm3 (0.1-0.6); Monocytes Percent Auto 5.2 % (2.6-8.5); Neutrophils Absolute Auto 4.1 K/mm3 (1.3-6.7); Platelet Count Result 270 k/mm3 (150-375); Red Blood Count 4.79 M/mm3 (4.2-5.4); Red Cell Distribution Width 13.4 % (11.5-14.5); White Blood Count 6.7 K/mm3 (4.5-10.0)
[2024-10-06 21:42] LABS: Alanine Aminotransferase 19 U/L (6-35); Albumin Level 5.2 g/dL (3.5-5.1); Alkaline Phosphatase 68 U/L (38-126); Anion Gap 11 mmol/L (4-12); Aspartate Amino Transferase 29 U/L (14-36); Bilirubin,Total 0.3 mg/dL (0.2-1.3); Blood Urea Nitrogen 14 mg/dL (7-17); Calcium 9.8 mg/dL (8.4-10.2); Carbon Dioxide 27 mmol/L (22-30); Chloride 103 mmol/L (98-107); Estimated CRCL calculation 90 ml/min; Estimated Glomerular Filt Rate > 60; Glucose 94 mg/dL (65-110); Potassium 3.9 mmol/L (3.4-5.0); Sodium 141 mmol/L (137-145)
[2024-10-06 21:44] LABS: INR 0.9; Prothrombin Time 12.4 Seconds (11.1-14.7)
[2024-10-06 21:45] LABS: Partial Thromboplastin Time 26.1 Seconds (22.3-36.8)
--- NOTE | 2024-10-06 22:02 | ED.PREGNANCY ---
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 Starting just prior to arrival. Reports she is currently about 6 weeks . Her OB is Indy Salinas. GENERAL: Well-appearing, well-nourished, and in no acute distress. HEAD: Normocephalic, atraumatic. CHEST: Clear to auscultation. ?No respiratory distress. HEART: Regular rate and rhythm.? NEURO: ?Alert and oriented x3. Patient screened in triage and initial orders placed.? ?Additional care and disposition to be based upon?diagnostic testing and treatment. Related Data Home Medications ?Medication ?Instructions ?Recorded ?Confirmed ?Last Taken ?Type bupropion HCl 300 mg 24 hr tablet, 300 mg PO DAILY 12/05/23 12/05/23 Unknown History extended release Allergies Allergy/AdvReac Type Severity Reaction Status Date / Time No Known Allergies Allergy Verified 10/06/24 21:13 Review of Systems Review of Systems: All systems reviewed & are unremarkable except as noted in HPI and below PMFSH Past Medical History Medical History No pertinent past medical history Surgical History Surgical History No pertinent past surgical history Family History Family History Mother Family history non-contributory Social History Social History Smoking status: Never smoker Substance use: never Gender identity (if verbalized by the patient): Female Spiritual care concerns: No Exam Narrative: GENERAL: Well-appearing, well-nourished, and in no acute distress. HEAD: Normocephalic, atraumatic. EYES: EOMI. CHEST: Clear to auscultation. No respiratory distress. No wheezes rales or rhonchi HEART: Regular rate and rhythm. No murmur heard. Normal peripheral pulses. ABDOMEN: Soft, nondistended, normal active bowel sounds. EXTREMITIES: Normal range of motion. No edema. SKIN: Warm, dry, no rash. NEURO: No focal deficits. Alert and oriented x3. PSYCH: Normal mood and affect Course Vital Signs Vital signs: Vital Signs Temperature 97.5 F L 10/06/24 21:14 Pulse Rate 78 10/06/24 21:14 Respiratory Rate 14 10/06/24 21:14 Blood Pressure 132/68 10/06/24 21:14 Pulse Oximetry 100 10/06/24 21:14 Oxygen Delivery Room Air 10/06/24 21:14 Temperature 97.5 F L 10/06/24 21:14 Pulse Rate 65 10/06/24 23:30 Respiratory Rate 16 10/06/24 23:30 Blood Pressure 115/74 10/06/24 23:30 Pulse Oximetry 100 10/06/24 23:30 Oxygen Delivery Room Air 10/06/24 21:14 MDM - OB/Uterine Contractions MDM Narrative Medical decision making narrative: Patient presents to the emergency department for vaginal bleeding in early . Her vitals are stable. Hemoglobin is normal. Patient is B-positive. Quantitative beta hCG 6005. ultrasound shows a single intrauterine gestation, 6 weeks and 4 days, cardiac activity. Patient updated on her workup and agrees with plan of care. She is to follow up with her OB. She was given warnings to return to the ER Differential Diagnosis Differential diagnosis: Likely other (Miscarriage, threatened miscarriage, subchorionic hemorrhage) Lab Data Attestation: I reviewed the patient's lab results. 10/06/24 21:24 10/06/24 21:24 Labs: Lab Results 10/06/24 Range/Units 21:24 WBC 6.7 (4.5-10.0) K/mm3 RBC 4.79 (4.2-5.4) M/mm3 Hgb 13.7 (12.0-15.0) g/dL Hct 42.9 (37.0-47.0) % MCV 89.6 (80-100) fl MCH 28.6 (26-34) pg MCHC 31.9 L (32-36) g/dl RDW 13.4 (11.5-14.5) % Plt Count 270 (150-375) k/mm3 MPV 11.0 H (7.4-10.4) fl Immature Gran % (Auto) 0.1 (0-0.5) % Neut % (Auto) 62.0 (45.5-73.1) % Lymph % (Auto) 31.6 (18.3-44.2) % Overton % (Auto) 5.2 (2.6-8.5) % Eos % (Auto) 1.0 (0-4.4) % Baso % (Auto) 0.1 L (0.2-1.2) % Lymph # (Auto) 2.11 (0.9-3.2) K/mm3 Overton # (Auto) 0.4 (0.1-0.6) K/mm3 Eos # (Auto) 0.1 (0-0.3) K/mm3 Baso # (Auto) 0.0 (0.0-0.1) K/mm3 Abs Immat Gran (auto) 0.01 (0.00-0.031) K/mm3 Absolute Neuts (auto) 4.1 (1.3-6.7) K/mm3 Absolute Nucleated RBC 0.000 (0.0-0.012) K/mm3 Nucleated RBC % 0.0 (0.0-0.2) % PT 12.4 (11.1-14.7) Seconds INR 0.9 APTT 26.1 (22.3-36.8) Seconds Sodium 141 (137-145) mmol/L Potassium 3.9 (3.4-5.0) mmol/L Chloride 103 (98-107) mmol/L Carbon Dioxide 27 (22-30) mmol/L Anion Gap 11 (4-12) mmol/L BUN 14 D (7-17) mg/dL Creatinine 0.79 (0.7-1.0) mg/dL Estim Creat Clear Calc 90 ml/min Estimated GFR > 60 (59 - ) Glucose 94 (65-110) mg/dL Calcium 9.8 (8.4-10.2) mg/dL Total Bilirubin 0.3 (0.2-1.3) mg/dL AST 29 (14-36) U/L ALT 19 (6-35) U/L Alkaline Phosphatase 68 (38-126) U/L Total Protein 9.0 H (6.3-8.2) g/dL Albumin 5.2 H (3.5-5.1) g/dL Beta HCG, Quant 6005.60 mIU/ML Blood Type B Positive Antibody Screen Negative Doses of RhIg Required 0 Imaging Data Radiologist's impression: ITS Impressions Ultrasound 10/06/24 23:16 IMPRESSION: Single intrauterine gestation with an approximate gestational age of 6 weeks and 4 days, with cardiac activity identified. Critical Care Time Critical Care Time Critical Care Time: No Discharge Plan Discharge Clinical Impression: First-trimester bleeding Patient Disposition: Home Condition: Stable Instructions: Threatened Miscarriage (ED) Additional Instructions: Return to the ER if you experience fever, chest pain, shortness of breath, abdominal pain with nausea and vomiting, you are unable to keep down liquids or solids, you are soaking through a pad/hour, or any other symptoms that are concerning to you Remain well hydrated. Tylenol as needed for discomfort. Pelvic rest, no tampons or sex Follow up with your OB Patient Language: Hong Konger Prescriptions: No Action bupropion HCl 300 mg tablet extended release 24 hr 300 mg PO DAILY Follow-up/Referrals: Dalton,Eunice Ocasio MD [Primary Care Provider] -
[2024-10-06 23:30] VITALS: BP 115/74; PULSE 65; RESP 16; O2SAT 100
--- NOTE | 2024-10-06 23:33 | PC.NURSE ---
Pt presents to ED c/o vaginal bleeding and intermittent 3/10 cramping abdominal pain, onset 2044. Pt is 7-8weeks , per pt has first OBGYN appt next month.
--- NOTE | 2024-10-06 23:47 | PC.NURSE ---
HR range 144- 204 by doppler
[2024-10-06 23:48] VITALS: BP 115/70; PULSE 55
[2024-10-06 23:49] VITALS: BP 133/83; PULSE 57
--- OUTSIDE RECORDS SUMMARY | 2024-10-06 23:49 | XMS_ITS | Referral Summary ---
Author Organization [facility] Address [address] [place] [phone] Care Team Providers Care Tandem Mill Sticker Name Role Phone Eunice Hoffman MD Primary Care Provider + Allergies No known active allergies Medications ibuprofen 200 mg tab/cap Take 2 tablet/capsu le (400 mg total) by mouth every 8 (eight) hours as needed Active escitalopram (LEXAPRO) 10 mg tablet Take 1 tablet (10 mg total) by mouth daily 03/29/2024 Active cabergoline (DOSTINEX) 0.5 mg tabletIndicatio ns:hyperprolact inemia Take 0.5 tablets (0.25 mg total) by mouth 2 (two) times a week 12 tablet 3 06/23/2024 Active Active Problems No known active problems Social History Tobacco Use Types Packs/Day Years Used Date Smoking Tobacco: Never Smokeless Tobacco: Never Tobacco Cessation:Counseling Given: Not Answered Comments Unknown Sex and Gender Information Value Date Recorded Sex Assigned at Not on file Legal Sex Female 7:55 PM SANITARIAN INSPECTOR Gender Identity Not on file Sexual Orientation Not on file Last Filed Vital Signs Vital Sign Reading Time Taken Comments Blood Pressure 101/65 06/22/2024 3:04 PM SANITARIAN INSPECTOR Pulse 65 06/22/2024 3:04 PM SANITARIAN INSPECTOR Temperature 36.8 C (98.3 F) 06/22/2024 3:04 PM SANITARIAN INSPECTOR Respiratory Rate - - Oxygen Saturation - - Inhaled Oxygen Concentration - - Weight 74.8 kg (164 lb 12.8 oz) 06/22/2024 3:04 PM SANITARIAN INSPECTOR Height 160 cm (5' 3 ) 06/22/2024 3:04 PM SANITARIAN INSPECTOR Body Mass Index 29.19 06/22/2024 3:04 PM SANITARIAN INSPECTOR Plan of Treatment Not on file Insurance [facility] Care Teams Tandem Mill Sticker Relationship Specialty Start Date End Date Eunice Hoffman MD [address] [place] [address] [place] [id number] PCP - General Family Medicine 05/31/23
--- OUTSIDE RECORDS SUMMARY | 2024-10-06 23:49 | XMS_ITS | Clinical Summary ---
Author Organization [facility] Address [address] [place] [phone] Care Team Providers Care Broom Machine Operator Name Role Phone Eunice Hoffman MD Primary [...] Active Active Problems No known active problems Family History Medical History Relation Name Comments Breast cancer Maternal Grandmother Colon cancer Maternal Grandmother Relation Name Status Comments Maternal Grandmother Social History Tobacco Use Types Packs/Day Years Used Date Smoking Tobacco: Never Smokeless Tobacco: Never Tobacco Cessation:Counseling Given: Not Answered Comments Unknown Sex and Gender Information Value Date Recorded Sex Assigned at Not on file Legal Sex Female 7:55 PM ALTERNATIVE MEDICINE PRACTITIONER Gender Identity Not on file Sexual Orientation Not on file Obstetrics History Para Term AB IAB SAB Ectopic Multiple Livin g Live Births 2 2 2 2 Date Outcome GA Total Labor Labor/2nd/3rd Weight Sex Type Anes PTL Teresa A1 A5 Name Clin Term Term Last Filed Vital Signs Vital Sign Reading Time Taken Comments Blood Pressure 101/65 06/22/2024 3:04 PM ALTERNATIVE MEDICINE PRACTITIONER Pulse 65 06/22/2024 3:04 PM ALTERNATIVE MEDICINE PRACTITIONER Temperature 36.8 C (98.3 F) 06/22/2024 3:04 PM ALTERNATIVE MEDICINE PRACTITIONER Respiratory Rate - - Oxygen Saturation - - Inhaled Oxygen Concentration - - Weight 74.8 kg (164 lb 12.8 oz) 06/22/2024 3:04 PM ALTERNATIVE MEDICINE PRACTITIONER Height 160 cm (5' 3 ) 06/22/2024 3:04 PM ALTERNATIVE MEDICINE PRACTITIONER Body Mass Index 29.19 06/22/2024 3:04 PM ALTERNATIVE MEDICINE PRACTITIONER Plan of Treatment Health Maintenance Due Date Last Done Comments Cervical Cancer Screening 2000 Depression Screening 2000 Hepatitis C Screening 2000 Regular Well Visit/Exam 18-64 2018 Covid-19 Vaccine ( season) 2024 04/15/2022, 04/17/2021, 08/17/2020, Additional history exists Influenza Vaccine (Season Ended) 2025 03/18/2023, 04/15/2022, 01/22/2021, Additional history exists DTaP/Tdap/Td Vaccine (9 - Td or Tdap) 12/05/2027 12/04/2017, 12/18/2011, 08/28/2011, Additional history exists Hepatitis B Screening Completed 01/29/2001 , 2000, 2000 Pneumococcal vaccine <65 Aged Out 01/29/2001, 08/17 No longer eligible based on patient's age to complete this topic Varicella Vaccines Completed 05/14/2007, 07/30/2001 HPV Vaccines Completed 10/02/2015, 09/16, 08/28/2011 Insurance [facility] Care Teams Broom Machine Operator Relationship Specialty Start Date End Date Eunice Hoffman MD [address] [place] [id number] PCP - General Family Medicine 05/31/23
--- OUTSIDE RECORDS SUMMARY | 2024-10-06 23:49 | XMS_ITS | Clinical Summary ---
Author Organization [facility] Address [address] [place] [address] Care Team Providers Care Tool Profiling Machine Set Up Operator Name Role Phone Eunice Hoffman MD Primary Care Provider Source Comments [facility],non-owned Affiliates and Associated Physician Practices is amultiple site organization consisting of ambulatory clinics and hospital sitesin [place], [place], [place] and [place]. This disclosure is being madepursuant to the Care Everywhere program and may not contain all information available regarding this patient. Last updated 18.[facility] [employer] Allergies No known active allergies Medications * [...] on file Legal Sex Female 5:40 AM BRIM IRONER HAND Gender Identity Not on file Sexual Orientation Not on file Last Filed Vital Signs Vital Sign Reading Time Taken Comments Blood Pressure 103/55 04/24/2022 12:19 PM BRIM IRONER HAND Ri ght arm Pulse 102 04/24/2022 12:14 PM BRIM IRONER HAND Temperature 36.8 C (98.3 F) 04/24/2022 12:14 PM BRIM IRONER HAND Respiratory Rate 17 04/24/2022 12:14 PM BRIM IRONER HAND Oxygen Saturation 99% 04/24/2022 12:14 PM BRIM IRONER HAND Inhaled Oxygen Concentration - - Weight 65.8 kg (145 lb) 04/24/2022 9:44 AM BRIM IRONER HAND Height 157.5 cm (5' 2 ) 04/24/2022 9:44 AM BRIM IRONER HAND Body Mass Index 26.52 04/24/2022 9:44 AM BRIM IRONER HAND Plan of Treatment Health Maintenance Due Date [...] patient's age to complete this topic Insurance [facility] [employer] Care Teams Tool Profiling Machine Set Up Operator Relationship Specialty Start Date End Date Eunice Hoffman MD [address] [place] [address] [place] [phone] PCP - General Family Medicine 08/01/13
[2024-10-06 23:50] VITALS: BP 133/73; PULSE 56
[2024-10-07 00:41] VITALS: BP 130/79; PULSE 65; RESP 16; O2SAT 100
== END 2024-10-07 00:41 | disposition home or self-care (01) ==
LOC: ANHED 23:46
PROVIDERS: Student in an Organized Health Care Education/Training Program; Emergency Provider Physician Assistant; PCP Family Medicine
DX: O20.9 Hemorrhage in early pregnancy, unspecified (principal); Z3A.01 Less than 8 weeks gestation of pregnancy
CPT/HCPCS: 36415; 76801; 80053; 84702; 85025; 85461; 85610; 85730; 86850; 86900; 86901; 99284

== ENCOUNTER 2024-10-11 10:17 | Emergency (ER) | payer OTHER, SELFPAY ==
--- NOTE | ~2024-10-11 | US_ITS ---
EXAMINATION: US OB <=14 wk fetus w TV DATE: 10/11/2024 13:35 CDT INDICATION: Vaginal bleeding with a positive test COMPARISON: 10/06/2024, 5 days earlier. TECHNIQUE: Real-time transabdominal obstetric ultrasound. FINDINGS: Quantitative beta hCG measures 6438, increased from 6005 on 10/06/2024. 3 para 2 Last menstrual period is given as 08/27/2024. Estimated date of delivery by last menstrual period is 06/03/2025 The uterus measures 9.2 x 4.0 x 6.5 cm. A gestational sac is identified within the uterus. A pole is identified, with a crown-rump length that measures 7.7 mm, corresponding to an approx imate gestational age of 6 weeks and 5 days. A well-formed yolk sac is present No cardiac activity is identified on today's static imaging. The right ovary measures 3.4 x 1.6 x 1.9 cm. The left ovary measures 3.9 x 1.8 x 1.7 cm. Estimated date of delivery by ultrasound is 06/04/2025 IMPRESSION: Single intrauterine gestation with an approximate gestational age of 6 weeks and 5 days, without feta l cardiac activity identified on today's static or cine imaging. Given that cardiac activity was detected on previous examination dated 10/06/2024, the absence o f cardiac activity on today's study is concerning for gestational loss. Short-term follow-up with serial beta hCG is recommended. These findings and recommendations were given to Dr Hernandez at 1:45pm on 10/11/2024 Reviewed, dictated and finalized at location A. IMPRESSION: Single intrauterine gestation with an approximate gestational age of 6 weeks an d 5 days, without cardiac activity identified on today's static or cine i maging. Given that cardiac activity was detected on previous examination dated , the absence of cardiac activity on today's study is concerning for ges tational loss. Short-term follow-up with serial beta hCG is recommended. These findings and recommendations were given to Dr Hernandez at 1:45pm on 2024
--- OUTSIDE RECORDS SUMMARY | 2024-10-11 10:21 | XMS_ITS | Clinical Summary ---
Author Organization [facility] Address [address] [place] [phone] Care Team Providers Care Children'S Court Magistrate Name Role Phone Eunice Hoffman MD Primary [...] on file Legal Sex Female 7:55 PM BUSINESS PROGRAMMER Gender Identity Not on file Sexual Orientation Not on file Obstetrics History Para Term AB IAB SAB Ectopic Multiple Livin g Live Births 2 2 2 2 Date Outcome GA Total Labor Labor/2nd/3rd Weight Sex Type Anes PTL Teresa A1 A5 Name Clin Term Term Last Filed Vital Signs Vital Sign Reading Time Taken Comments Blood Pressure 101/65 06/22/2024 3:04 PM BUSINESS PROGRAMMER Pulse 65 06/22/2024 3:04 PM BUSINESS PROGRAMMER Temperature 36.8 C (98.3 F) 06/22/2024 3:04 PM BUSINESS PROGRAMMER Respiratory Rate - - Oxygen Saturation - - Inhaled Oxygen Concentration - - Weight 74.8 kg (164 lb 12.8 oz) 06/22/2024 3:04 PM BUSINESS PROGRAMMER Height 160 cm (5' 3) 06/22/2024 3:04 PM BUSINESS PROGRAMMER Body Mass Index 29.19 06/22/2024 3:04 PM BUSINESS PROGRAMMER Plan of Treatment Health Maintenance Due Date [...] HPV Vaccines Completed 10/02/2015, 09/16, 08/28/2011 Insurance [facility] Care Teams Children'S Court Magistrate Relationship Specialty Start Date End Date Eunice Hoffman MD [address] [place] [phone] PCP - General Family Medicine 05/31/23
--- OUTSIDE RECORDS SUMMARY | 2024-10-11 10:21 | XMS_ITS | Data Portability ---
Author Organization [facility] Address [address] [place] [address] [place] [address] Assessment No assessment recorded. Plan of Treatment Reminders Order Date Submit Date Provider Last Modified By Organization Details Last Modified Time Details Appointments U/S OB SNEAK PEAK 2024 04:00P M ULTRASOUND Not available Not available Not available OB SCREEN 2024 04:30P M Sarah TELLEZ MD Not available Not available Not available Lab TSH, serum or plasma 2024 025 [facility] (Lab), [address] [facility], [place], [address], 08/08/2024 18:12:35 prolact in, serum 2024 025 [facility] (Lab), [address] [place], [address], 08/08/2024 18:12:35 HbA1c (hemogl obin A1c), blood 2024 025 [facility] (Lab), [address] [facility], [place], [address], 08/08/2024 18:12:35 pregnan cy test, urine 2023 024 [email or web address], [address], [address], [place], [address], 09/16/2023 11:53:12 Referral None recorde d. Procedures None recorde d. Surgeries None recorde d. Imaging US, transva ginal 2021 022 [email or web address] [place], [address], [address], [place], [address], 11/07/2021 21:45:22 Medication Orders Bactrim DS 800 mg-160 mg tablet 2023 025 [facility], [address] [place] [address], [address], 08/05/2024 12:50:46 Bactrim DS 800 mg-160 mg tablet [email or web address] [place] [address] Pharmacy 361, [address] [place], [address], 08/05/2024 12:50:37 Patient TargetsNo targets recorded. Patient [...] used inter morris eably . Not Available [facility] (Lab) [address], [place], [address], 11/04/2021 22:15:06 11/02/19 22 11/01/2021 HEPAT ITIS [...] used inter morris eably . Not Available [facility] (Lab) [address], [place], [address], 11/04/2021 22:15:07 11/02/19 22 11/01/2021 HEPAT ITIS B SURFA CE ANTIG EN hepatitis B surface antigen Non-re active non-re active This assay was perfo rmed using [employer] n reage nts and test kits. Value s obtai brian with other assay metho ds or kits canno t be used inter morris eably . Not Available [facility] (Lab) [address] [facility], [place], [address], 11/04/2021 22:15:07 11/02/19 22 11/01/2021 HIV 1/2 ANTIG EN/AN TIBOD Y, REFLE X CONFI RMATI ON HIV Ag-Ab total quant 0.10 idx <1.00 Not Available [facility] (Lab) [address] [facility], [place], [address], 11/04/2021 22:15:07 11/02/19 22 11/01/2021 HIV 1/2 ANTIG EN/AN TIBOD Y, REFLE X CONFI RMATI ON HIV Ag-Ab total Non-re active non-re active Not Available [facility] (Lab) [address] [place], [address], 11/04/2021 22:15:07 11/02/19 22 11/01/2021 HIV 1/2 ANTIG EN/AN TIBOD Y, REFLE X CONFI RMATI ON HIV-1 antibody quant 0.10 idx <1.00 Not Available [facility] (Lab) [address] [place], [address], 11/04/2021 22:15:07 11/02/19 22 11/01/2021 HIV 1/2 ANTIG EN/AN TIBOD Y, REFLE X CONFI RMATI ON HIV-1 antibody Non-re active non-re active Not Available [facility] (Lab) [address] [place], [address], 11/04/2021 22:15:07 11/02/19 22 11/01/2021 HIV 1/2 ANTIG EN/AN TIBOD Y, REFLE X CONFI RMATI ON HIV-1 antigen (P24) quant 0.10 idx <1.00 Not Available [facility] (Lab) [address] [place], [address], 11/04/2021 22:15:07 11/02/19 22 11/01/2021 HIV 1/2 ANTIG EN/AN TIBOD Y, REFLE X CONFI RMATI ON HIV-1 antigen (P24) Non-re active non-re active Not Available [facility] (Lab) [address] [place], [address], 11/04/2021 22:15:07 11/02/19 22 11/01/2021 HIV 1/2 ANTIG EN/AN TIBOD Y, REFLE X CONFI RMATI ON HIV-2 antibody quant 0.05 idx <1.00 Not Available [facility] (Lab) [address] [place], [address], 11/04/2021 22:15:07 11/02/19 22 11/01/2021 HIV 1/2 [...] on will be perfo rmed by the [employer] HIV 1/2 Suppl ement al Assay . The perfo rmanc e of this assay has not been estab lishe d for neona wendy and the assay shoul d not be used in indiv idual s young er than 2 years of age. Not Available [facility] (Lab) [address] [facility], [place], [address], 11/04/2021 22:15:07 11/02/19 22 11/01/2021 RPR SCREE N/REF NADIRA TITER /FTA RPR screen Nonrea ctive nonrea ctive Not Available [facility] (Lab) [address] [facility], [place], [address], 11/04/2021 22:15:08 11/02/19 22 11/01/2021 HEPAT ITIS B CORE, IGM hepatitis B core IgM antibody Negati ve negati ve Not Available [facility] (Lab) [address] [facility], [place], [address], 11/04/2021 22:15:08 11/02/19 22 11/01/2021 IMAGE GUIDE D PAP, REFLE X HPV IF ASCUS ONLY image guided Pap, reflex HPV ASCUS only SEE RESULT S BELOW CASE REPOR T: Cytol ogy Gynec ologi brandie Repor t Case: [id number] Autho alexandria g Provi mandy: Paul Monterroso Colle cted: 11/01 1626 [employer] Order ing Locat ion: [place] [facility] [...] d, as ihsan preston nted. Not Available [facility] (Lab) [address], [place], [address], 11/06/2021 11:58:41 11/02/19 22 11/01/2021 TRICH OMONA S VAGIN DEB (RRNA ) trichomonas vaginalis ribosomal RNA (rrna) Negati ve negati ve Not Available [facility] (Lab) [address] [facility], [place], [address], 11/06/2021 11:58:42 11/02/19 22 11/01/2021 CT/GC (BEE) , THINP REP VIAL chlamydia trachomatis, PCR Positi ve negati ve abnormal Posit binu: Prese nce of C. trach omati s (by BEE) Chlam ydia trach omati s RNA detec juan jose by PCR. Not Available [facility] (Lab) [address] [facility] [address], [place], [address], 11/06/2021 11:58:42 11/02/19 22 11/01/2021 CT/GC (BEE) , THINP REP VIAL neisseria gonorrhoeae, PCR Negati ve negati ve Not Available [facility] (Lab) [address] [facility], [place], [address], 11/06/2021 11:58:42 11/29/19 22 11/28/2021 CT/GC AND TRICH OMONA S VAGIN DEB (RRNA ), SWAB chlamydia trachomatis, PCR Negati ve negati ve Not Available [facility] [address] [place] [address], [phone], 11/29/2021 12:23:49 11/29/19 22 11/28/2021 CT/GC AND TRICH OMONA S VAGIN DEB (RRNA ), SWAB neisseria gonorrhoeae, PCR Negati ve negati ve Not Available [facility] [address] [place] [address], [phone], 11/29/2021 12:23:49 11/29/19 22 11/28/2021 CT/GC AND TRICH OMONA S VAGIN DEB (RRNA ), SWAB trichomonas vaginalis ribosomal RNA (rrna) Negati ve negati ve Not Available [facility] [address] [place] [address], [phone], 11/29/2021 12:23:49 11/29/19 22 11/28/2021 CT/GC AND TRICH OMONA S VAGIN DEB (RRNA ), URINE chlamydia trachomatis, PCR Negati ve negati ve Not Available [facility] [address] [place] [address], [id number], 11/29/2021 12:23:50 11/29/19 22 11/28/2021 CT/GC AND TRICH OMONA S VAGIN DEB (RRNA ), URINE neisseria gonorrhoeae, PCR Negati ve negati ve Not Available [facility] [address] [place] [address], [phone], 11/29/2021 12:23:50 11/29/19 22 11/28/2021 CT/GC AND TRICH OMONA S VAGIN DEB (RRNA ), URINE trichomonas vaginalis ribosomal RNA (rrna) Negati ve negati ve Not Available [facility] Disease [address] [place] [address], [id number], 11/29/2021 12:23:50 09/16/19 24 09/16/2023 pregn solomon test, urine HCG negati ve Not Available [facility] [address], [place], [address], 09/16/2023 11:52:57 11/08/19 22 11/07/2021 US, trans vagin al No observ ation record ed. [email or web address] [facility] [address], [place], [address], 11/07/2021 13:10:22 11/08/19 22 11/07/2021 US, trans vagin al No observ ation record ed. [email or web address] [facility] [address], [place], [address], 11/08/2021 13:56:30 11/08/19 22 10/24/2021 US, eloisa cortes, keith gomes No observ ation record ed. [email or web address] [facility] [address], [place], [address], 12/03/2021 12:37:01 Result Notes None recorded. Problems Name Problem SNOMED Code Status Onset Date Resolution Date Notes Provider Name and Address Organization Details Recorded Time Normal pregnanc y in multigra gómez 87460103441 4106 Completed 201810/30/2020 Encounte r for suprvsn of normal pregnanc y, third trimeste r;Practi ce ID: 0001 Stefania cox, [facility] 11:32:07 Single live from singleto n pregnanc y [id number] Completed 201810/30/2020 Single live ;Pr actice ID: 0001 Stefania cox, [facility] 11:32:25 Insertio n of intraute rine contrace ptive device Completed 201810/30/2020 Encounte r for insertio n of intraute rine contrace ptive device;P ractice ID: 0001 Stefania cox, [facility] 11:31:57 Pregnanc y test negative [id number] Completed 201810/30/2020 Encounte r for pregnanc y test, result negative ;Practic e ID: 0001 Stefania cox, [facility] 11:32:13 Clinical finding Completed 201810/30/2020 Presence of (intraut erine) contrace ptive device;P ractice ID: 0001 Stefania cox, [facility] 11:31:27 Blood leukocyt e number above referenc e range [id number] Completed 201710/30/2020 Elevated white blood cell count, unspecif ied;Napoleon rded Elsewher e: No Locat ion: Nani kaur [facility] S ource: EHR Pruner mai: N Practi ce ID: 0001 Silvino lable Time: 03:30:00 PM Stefania cox, [facility] 1 11:31:55 Pregnanc y, childbir th and puerperi um finding Completed 201710/30/2020 Encntr for suprvsn of normal first preg, third trimeste r;Record ed Elsewher e: No Locat ion: Jacquimarvin [facility] S ource: EHR Pruner mai: N Practi ce ID: 0001 Silvino lable Time: 09:15:00 AM Stefania Schmitz [facility], [facility] 11:32:19 Finding of desire for urinatio n [id number] Completed 201710/30/2020 Urgency of urinatio n;Record ed Elsewher e: No [facility] S ource: EHR Pruner mai: N Gabriellati ce ID: 0001 Silvino lable Time: 02:30:00 PM Stefania Schmitz [facility], [facility] 11:31:38 Acute vaginiti s [id number] Completed 201710/30/2020 Vaginiti s;Record ed Elsewher e: No Locat ion: Jacquimarvin [facility] S ource: EHR Pruner mai: N Practi ce ID: 0001 Silvino lable Time: 03:30:00 PM Stefania cox, [facility] 11:31:20 Antenata l screenin g Completed 201810/30/2020 Encounte r for antenata l screenin g for macrosom ia;Recor ded Elsewher e: No Locat ion: Nani kaur [facility] S ource: EHR Pruner mai: N Practi ce ID: 0001 Silvino lable Time: 03:30:00 PM Stefania cox [facility] 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 11:32:29 Pregnanc y, childbir th and puerperi um finding Completed 201710/30/2020 Encounte r for supervis ion of normal 1st pregnanc y, 2nd trimeste r;Record ed Elsewher e: No Locat ion: Nani kaur [facility] S ource: EHR Pruner mai: N Gabriellati ce ID: 0001 Silvino lable Time: 03:00:00 PM Stefania Schmit[facility] 11:32:17 Pelvic and perineal pain [id number] Completed 201710/30/2020 Pelvic and perineal pain;Rec orded Elsewher e: No Locat ion: Nani kaur [facility] S ource: EHR Pruner mai: N Gabriellati ce ID: 0001 Silvino lable Time: 02:30:00 PM Stefania cox [facility] 11:32:09 Lochia finding Completed 201710/30/2020 Encounte r for routine postpart um follow-u p;Record ed Elsewher e: No Locat ion: Nestor natasha [facility] S ource: EHR Pruner mai: N Gabriellati ce ID: 0001 Silvino lable Time: 03:45:00 PM Stefania cox [facility] 11:32:05 Secondar y amenorrh ea [id number] Completed 201710/30/2020 Secondar y amenorrh ea;Recor ded Elsewher e: No Locat ion: [facility] S ource: EHR Pruner mai: N Practi ce ID: 0001 Silvino lable Time: 02:00:00 PM Stefania cox, [facility] 1 11:32:23 Implanta tion of subcutan eous contrace ptive Completed 201610/30/2020 Encounte r for initial prescrip tion of implanta ble subderma l contrace ptive;Re corded Elsewher e: No Locat ion: [facility] S ource: EHR Pruner mai: N Practi ce ID: 0001 Silvino lable Time: 05:45:00 PM Stefania cox [facility] 11:31:59 Gonorrhe a of lower genitour inary tract [id number] Completed 201710/30/2020 Gonococc al infectio n of lower genitour inary tract, unsp;Rec orded Elsewher e: No Locat ion: [facility] S ource: EHR Pruner mai: N Practi ce ID: 0001 Silvino lable Time: 02:30:00 PM Stefania cox, [facility] 11:31:[address] Concept Completed 201710/30/2020 Encntr for routine child health exam w/o abnormal findings ;Recorde d Elsewher e: No Locat ion: [facility] S ource: EHR Pruner mai: N Practi ce ID: 0001 Silvino lable Time: 02:00:00 PM Stefania cox [facility] 11:32:27 Amenorrh ea [id number] Completed 201610/30/2020 Amenorrh ea, unspecif ied;Prac anna ID: 0001 Stefania cox, [facility] 11:31:22 Pregnanc y detectio n examinat ion Completed 201710/30/2020 Encounte r for pregnanc y test, result positive ;Practic e ID: 0001 Stefania cox, [facility] 11:32:11 Complica tion of pregnanc y, childbir th and/or puerperi um [id number] Completed 201710/30/2020 Oth diseases and conditio ns compl preg/chl dbrth;Pr actice ID: 0001 Stefania Schmitz [facility], [facility] 11:32:31 Finding of contents of cervix [id number] Completed 201710/30/2020 Weeks of gestatio n of pregnanc y not specifie d;Practi ce ID: 0001 Stefania Schmitz [facility] 11:31:36 Pregnanc y, childbir th and puerperi um finding Completed 201710/30/2020 Encntr for suprvsn of normal first preg, first trimeste r;Practi ce ID: 0001 Stefania Schmitz [facility], [facility] 11:32:15 Antenata l screenin g for malforma tion Completed 201710/30/2020 Encounte r for antenata l screenin g for malforma tions;Pr actice ID: 0001 Stefania Schmitz [facility], [facility] 11:31:25 Complica tion occurrin g during pregnanc y Completed 201710/30/2020 Infectio n oth prt genitl trct in pregnanc y, third trimeste r;Practi ce ID: 0001 Stefania cox [facility] 11:31:30 Gestatio n period, 33 weeks [id number] Completed 201710/30/2020 33 weeks gestatio n of pregnanc y;Practi ce ID: 0001 Stefania Schmitz [facility], [facility] 11:31:44 Dysuria [id number] Completed 201710/30/2020 Dysuria; Practice ID: 0001 Stefania cox, [facility] 11:31:34 Gestatio n period, 34 weeks [id number] Completed 201710/30/2020 34 weeks gestatio n of pregnanc y;Practi ce ID: 0001 Stefania cox, [facility] 11:31:46 Disorder of biliary tract 540434962 Completed 201710/30/2020 Liver and biliary tract disord in pregnanc y, third trimeste r;Practi ce ID: 0001 Stefania cox, [facility] 11:31:32 Liver disorder in pregnanc y - not delivere d [id number] Completed 201710/30/2020 Liver and biliary tract disord in pregnanc y, third trimeste r;Practi ce ID: 0001 Stefania cox, [facility] 11:32:02 Lacerati on of female perineum Completed 201710/30/2020 Second degree perineal lacerati on during delivery ;Practic e ID: 0001 Stefania cox, [facility] 11:32:01 Gestatio n period, 39 weeks [id number] Completed 201710/30/2020 39 weeks gestatio n of pregnanc y;Practi ce ID: 0001 Stefania cox, [facility] 11:31:49 Hemorrha gic complica tion of pregnanc y [id number] Completed 201810/30/2020 Other hemorrha ge in early pregnanc y;Practi ce ID: 0001 Stefania cox, [facility] 11:31:53 Uterine size for dates discrepa ncy Completed 201810/30/2020 Uterine size-micki e discrepa ncy, first trimeste r;Practi ce ID: 0001 Stefania Schmitz [facility], [facility] 11:32:34 Gestatio n less than 9 weeks [id number] Completed 201810/30/2020 Less than 8 weeks gestatio n of pregnanc y;Practi ce ID: 0001 Stefania Schmitz [facility], [facility] 11:31:42 Furuncle [id number] Completed 201810/30/2020 Boil;Rec orded Elsewher e: No Locat ion: [facility] S ource: EHR Pruner mai: N Practi ce ID: 0001 Silvino lable Time: 11:45:00 AM [facility]ania [facility], [facility] 11:31:40 Rubella screenin g status [id number] Completed 201710/30/2020 Encounte r for antenata l screenin g, unspecif ied;Napoleon rded Elsewher e: No Locat ion: [facility] S ource: EHR Pruner mai: N Practi ce ID: 0001 Silvino lable Time: 10:00:00 AM Stefania Schmitz [facility], [facility] 11:32:21 Notes:Unsp infct of urinary tract in , third trimester Practice ID: 0001 Problem Notes None recorded. Procedures Surgical History Date Name Laterality Status Provider Name and Address Organization Details Recorded Time 4 IUD Removal completed СЕРГЕЙ [facility] [address], [place], [address], [facility] 09/16/2023 12:17:52 Imaging Results None recorded. Procedure Notes None recorded. Medical Equipment None Reported. Allergies No known drug allergies Medications Name Sig Start Date Stop Date Status Note LastModified by Organization Details LastModified Time Stacy 21 mcg/24 hr (up to 8 years) 52 mg intrauter ine device as directed 09/15 completed Prescrib ed Elsewher e: No Locat ion: Nani kaur [facility] odify By: [email or web address] brice DateTime : 03/25/20 19 02:00:00 PM Not [...] Prescrib ed Elsewher e: No Locat ion: [facility] natasha [facility] odify By: [email or web address] Steve r DateTime : 12/25/19 18 03:30:00 PM Not Available Not Available Not Available ceftriaxo ne 250 mg solution for injection inject 1 (500MG) by intramus cular route every day for 2 days 06/24 completed Prescrib ed Elsewher e: No Locat ion: Nest[facility] natasha [facility] odify By: evita brice DateTime : 06/23/19 18 02:30:00 PM Not Available Not Available Not Available Zithromax Z-James 250 mg tablet take 2 tablet by oral route every day for 1 day then 1 tablet (250 mg) by oral route once daily for 4 days 06/27 completed Prescrib ed Elsewher e: No [facility] By: evita brice DateTime : [...] Prescrib ed Elsewher e: No Locat ion: [facility] odify By: shadynader Kaur javier DateTime : 12/17/19 19 11:45:00 AM Not [...] ed Elsewher e: No Locat ion: Nani [facility] odify By: remberto sharma DateTime : 12/30/19 18 05:01:36 PM Not Available Not Available Not Available baclofen 10 mg tablet TAKE 1 TABLET BY MOUTH THREE TIMES DAILY NEEDED 09/15 completed Not Available Not Available Not Available neomycin- polymyxin -dexameth 3.5 mg/mL-10, 000 unit/mL-0 .1% eye drops INSTILL 1 DROP INTO EACH EYE EVERY 6 HOURS FOR 7 DAYS 01/21 completed Not Available Not Available Not [...] route every day 10/30 completed Prescrib ed Elsew e: Yes [facility] By: [email or web address] z Cortes brice DateTime : 03/11/20 03:00:00 PM Not Available [...] completed Not Available Not Available Not Available [employer]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 08/05/2024 12:50:18 Date Recorded Body height Body mass index (BMI) Body weight Systolic And Diastolic Provider Name and Address Organization Details Last Updated DateTime 09/16/2023 160.02 cm 25.3 kg/m2 99280.71 g 117/82 mm[Hg] Emily Hernandez [facility] 09/16/2023 11:47:41 Date Recorded Body height Body mass index (BMI) Body weight Systolic And Diastolic Provider Name and Address Organization Details Last Updated DateTime 11/28/2021 160.02 cm 25 kg/m2 00913.96 g 122/76 mm[Hg] [facility] 11/28/2021 11:07:08 Date Recorded Body height Body mass index (BMI) Body weight Systolic And Diastolic Provider Name and Address Organization Details Last Updated DateTime 01/21/2023 160.02 cm 25 kg/m2 89958.52 g 105/67 mm[Hg] [facility] 01/21/2023 15:15:49 Social History Question Answer Notes LastModified by Organizat ion Details LastModified Time Tobacco Smoking Status Never Smoker Stefania cox, [facility] 06/28/2021 14:31:31 Do You Have An Advance Directive? No [email or web address] Information n ot available 06/28/2021 If You Are , What Was Your Level Of Alcohol Consumption Prior To ? None [email or web address] Information not available 06/28/2021 Are You Blind Or Do You Have Difficulty Seeing? No [email or web address] Information n ot available 10/30/2020 What Is Your Level Of Caffeine Consumption? Occasional Information not available 10/30/2020 In The 14 Days Before Symptom Onset, Have You Had Close Contact With A Laboratory-confirm ed COVID-19 While That Case Was Ill? No [email or web address] Information n ot available 10/30/2020 In The 14 Days Before Symptom Onset, Have You Had Close Contact With A Person Who Is Under Investigation For COVID-19 While That Person Was Ill? No [email or web address] Information not available 10/30/2020 Have You Been To An Area Known To Be High Risk For COVID-19? No [email or web address] Information not available 10/30/2020 Are You Deaf Or Do You Have Serious Difficulty Hearing? No [email or web address] Information not available 10/30/2020 What Type Of Diet Are You Following? REGULAR [email or web address] Information n ot available 10/30/2020 What Is The Highest Grade Or Level Of School You Have Completed Or The Highest Degree You Have Received? [id number] [email or web address] Information not available 06/28/2021 Are There Any Guns Present In Your Home? No [email or web address] Information not available 06/28/2021 What Was The Date Of Your Most Recent Tobacco Screening? 06/28/2021 [email or web address] Information not available 06/28/2021 How Many Children Do You Have? 2 [email or web address] Information not available 06/28/2021 Have You Ever Been Counseled For Unhealthy Alcohol Use? No [email or web address] Information not available 06/28/2021 Do You Use Protection During Sex? No [email or web address] Information not available 06/28/2021 Do You Use Your Seat Belt Or Car Seat Routinely? Yes Information not available 10/30/2020 Do You Have Smoke And Carbon Monoxide Detectors In Your Home? Yes [email or web address] Information not available 10/30/2020 How Much Tobacco Do You Smoke? No Information not available 12/02/2019 Do You Use Sunscreen Routinely? Yes [email or web address] Information not available 10/30/2020 Has Tobacco Cessation Counseling Been Provided? No [email or web address] Information not available 06/28/2021 Have You Used IV Drugs? No [email or web address] Information not available 06/28/2021 Do You Have Difficulty Walking Or Climbing Stairs? No [email or web address] Information not available 06/28/2021 Sex: Unknown Functional Status Question Answer Note LastModified by Organizat ion Details LastModified Time Do you use any illicit or recreational drugs? No [email or web address] Information not available 10/30/2020 What is your level of alcohol consumption? Occasional [email or web address] Information not available 10/30/2020 Do you or have you ever used smokeless tobacco? Never used smokeless tobacco [email or web address] Information not available 06/28/2021 Are you able to walk? YESWOREST [email or web address] Information not available 10/30/2020 Are you able to care for yourself? Yes [email or web address] Information not available 06/28/2021 Do you have difficulty dressing or bathing? No [email or web address] Information not available 06/28/2021 Do you or have you ever used e-cigarettes or vape? Never used electronic cigarettes [email or web address] Information not available 06/28/2021 What is your exercise level? Occasional [email or web address] Information not available 12/02/2019 Mental Status Question Answer Note LastModified by Organization D etails LastModified Time Do you feel stressed (tense, restless, nervous, or anxious, or unable to sleep at night)? [id number] [email or web address] Information not available 10/30/2020 Family History Relationship Description Onset Age of this Age Resolved Age Notes LastModified by Organization Details LastModified Time Father Kurtis obando [email or web address] Not available 12/01 15:51:26 Maternal Grandmother Malignant tumor of colon [email or web address] Not available 12/01 15:51:35 Maternal Grandmother Malignant tumor of breast [email or web address] Not available 12/01 15:51:45 Medical History Condition Response Allergies (Food, seasonal, environmental ) Y Other N Blood Transfusion N Drug/Latex Allergies/Reactions N Breast Cancer N Dermatologic Disorders N Lung Disease N [...] SNOMED-CT Code Diagnosis ICD10 Code Diagnosis Note [id number] Indy Salinas [facility] [address],[place] [address] 12/02/2019 15:36:42 12/02/2019 16:19:50 Eruption [id number] R21 rash on face near eye use lotrisone on nose away from eyes, medrol dose pack if does not resolve see pcp Gynecologi c examination 82748401 Z01.419 [id number] [facility] [address],[place] [address] 10/30/2020 11:11:36 10/30/2020 11:59:27 IUD check 686043007 Z30.431 [id number] [facility] [address],[place] [address] 06/28/2021 13:58:55 06/28/2021 14:52:37 IUD check 857948631 Z30.431 Irregular periods 072316 07 N92.6 [id number] СЕРГЕЙ Hobson [facility] [address],[place] [address] 09/16/2023 11:42:49 09/16/2023 12:23:44 Contraception care management 330363507 Z30.9 Removal of intrauterine contraceptive device done [id number] 74472 Z30.432 Pt desires IUD removalUPT (-)r/b reviewed, consent reviewed and signedIUD removed (see procedure note)encou raged daily PNV Reproducti ve care management 324773469 Z31.9 Furuncle of vulva 832907 006 N76.4 rx sent for bactrimvul rosana care guidelines discusseda void waxing, trimming for hair removal recommende d insteadque stions answered, precaution s reviewed Time spent in visit is a total of 30 mins with at least 50% of visit consisting of counseling and review of plan of care. [id number] Darryn Tellez MD [facility] [address],[place] [address] 07/09/2021 16:54:13 07/09/2021 17:50:58 Irregular intermenstrual bleeding 66859911 N92.1 R10.2 [id number] СЕРГЕЙ Hobson [facility] [address],[place] [address] 11/01/2021 15:22:11 11/01/2021 17:35:41 Discharge from nipple 55218750 N64.52 Venereal d isease screening 445133698 Z11.3 Sexually t ransmitted infectious disease 0289156 A64 Gynecologi c examination 04860237 Z01.419 Z11.3 Z11.8 Take Calcium with Vitamin [...] now. Will await u/s results, prolactin level ordered.Althea juan IUD, Inserted 03/25/2019. Happy with this control. No issuesStri ng not visualized on exam today, pelvic u/s ordered to assess IUD placement. First pap done todaySTI testing added to papBlood STI testing orderedRTC in 1 year for WWE or sooner if needed [id number] Darryn Tellez MD [facility] [address],[facility] [address] 11/07/2021 12:11:21 11/07/2021 13:34:16 Mechanical complication of intrauterine contraceptive device 700817336 T83.39XA [id number] СЕРГЕЙ Hobson [facility] [address],[facility] [address] 11/28/2021 10:58:10 11/28/2021 11:51:40 Chlamydial infection 879064710 A74.9 STI endocervic al testing sentTo await [...] and review of plan of care. Hyperprolactinemia 71458 2004 E22.1 [id number] СЕРГЕЙ Hobson [facility] [address],[place] [address] 01/21/2023 14:57:44 01/21/2023 15:50:10 Abscess of vulva 39663715 N76.4 cx sentrx for bactrim BID x [...] review of plan of care. Vaginal discharge 881803 006 N89.8 Venereal d isease screening 515369143 Z11.3 [id number] VIPIN HERRERA MD [facility] [address],[place] [address] 08/05/2024 12:03:49 08/08/2024 11:19:16 Idiopathic hyperprolactinemia 904547538 E22.1 - Differenti al diagnosis of cause [...] Viera Member ID Guarantor Name 11/07/2021 1 [facility] - DOS ON OR AFTER 20 (MEDICAID REPLACEMENT - HMO) Erika Wilkinson [id number] Erika Wilkinson 11/28/2021 1 [facility] ON OR AFTER 11/15/20 (MEDICAID REPLACEMENT - HMO) Erika Wilkinson [id number] Margotsa ChaudhryMinh 01/21/2023 1 [facility] ON OR AFTER 11/15/20 (MEDICAID REPLACEMENT - HMO) Margot Minh [id number] Margotsa ChaudhryMinh 09/16/2023 1 [facility] ON OR AFTER 11/15/20 (MEDICAID REPLACEMENT - HMO) Erika Wilkinson [id number] Margotsa ChaudhryMinh 08/05/2024 1 [facility] ON OR AFTER 11/15/20 (MEDICAID REPLACEMENT - HMO) Erika Wilkinson [id number] Erika Wilkinson Notes Date Note Type Note Provider Name and Address Organization Details Recorded Time 2 text/html Here today for TANESHA for chlamydia infectionHad N/V with doxy, rx then sent for azithromycin. Completed that with no issues.Partner was tested and treatedHas not had intercourse since treatmentHas appointment with endocrinology on 12/02/2021 for elevated prolactin СЕРГЕЙ [facility]son [address], [place], [address], [facility] 11/28/2021 11:37:46 3 text/html 22yopresents for evaluation of vaginal symptomswhite clear d/c x 1 week, discomfort with ICpimple on left labia that drained a few days ago - uncomfortablemirena IUD for BC, denies any new partnersneg n/v/fneg pelvic painneg urinary symptomsnormal bowel movements СЕРГЕЙ [facility] [address], [place], [address], [facility] 01/21/2023 15:47:33 4 text/html [id number] for mirena IUD removalmirena IUD inserted 03/25/2019would like removal to TTC a few pimple like areas on mons, noticed after waxingneg drainageneg n/v/fneg flu-like symptomsneg d/c or odorsneg pelvic pain she would like STI testing today СЕРГЕЙ [facility] [address], [place], [address], [facility] 09/16/2023 12:21:48 5 text/html Presents today [...] analysis VIPIN HERRERA MD [address], [place], [address], [facility] 08/05/2024 17:32:42 OBGyn Episode Ob Episode Information Episode Created Date Number of Fetuses Patient Bloodtype Patient rh Status Prepregnancy Weight lbs Domestic Partner Domestic Partner Phone Father Name Finger Cobbler Status 12/02/19 20 1 CLOSED Fetus Data [...] Domestic Partner Domestic Partner Phone Father Name Finger Cobbler Status 12/02/19 20 1 CLOSED Fetus Data [...]
--- OUTSIDE RECORDS SUMMARY | 2024-10-11 10:21 | XMS_ITS | Referral Summary ---
Author Organization [facility] Address [address] [place] [address] Care Team Providers Care Commercial Pest Control Technician Name Role Phone Eunice Hoffman MD Primary [...] on file Legal Sex Female 7:55 PM VP PATIENT Gender Identity Not on file Sexual Orientation Not on file Last Filed Vital Signs Vital Sign Reading Time Taken Comments Blood Pressure 101/65 06/22/2024 3:04 PM VP PATIENT Pulse 65 06/22/2024 3:04 PM VP PATIENT Temperature 36.8 C (98.3 F) 06/22/2024 3:04 PM VP PATIENT Respiratory Rate - - Oxygen Saturation - - Inhaled Oxygen Concentration - - Weight 74.8 kg (164 lb 12.8 oz) 06/22/2024 3:04 PM VP PATIENT Height 160 cm (5' 3) 06/22/2024 3:04 PM VP PATIENT Body Mass Index 29.19 06/22/2024 3:04 PM VP PATIENT Plan of Treatment Not on file Insurance [facility] Care Teams Commercial Pest Control Technician Relationship Specialty Start Date End Date Eunice Hoffman MD [address] [place] [address] [place] [address] PCP - General Family Medicine 05/31/23
--- OUTSIDE RECORDS SUMMARY | 2024-10-11 10:21 | XMS_ITS | Clinical Summary ---
Author Organization [facility] Address [address] [facility] [place] [address] Care Team Providers Care Bible Reader Name Role Phone Eunice Hoffman MD Primary Care Provider [phone] Source Comments [facility],non-owned Affiliates and Associated Physician Practices is amultiple site organization consisting of ambulatory clinics and hospital sitesin [place], [place], [place] and [place]. This disclosure is being madepursuant to the Care Everywhere program and may not contain all information available regarding this patient. Last updated 18.[facility] [employer] Allergies No known active allergies Medications * [...] on file Legal Sex Female 5:40 AM LINE LOCATOR Gender Identity Not on file Sexual Orientation Not on file Last Filed Vital Signs Vital Sign Reading Time Taken Comments Blood Pressure 103/55 04/24/2022 12:19 PM LINE LOCATOR Ri ght arm Pulse 102 04/24/2022 12:14 PM LINE LOCATOR Temperature 36.8 C (98.3 F) 04/24/2022 12:14 PM LINE LOCATOR Respiratory Rate 17 04/24/2022 12:14 PM LINE LOCATOR Oxygen Saturation 99% 04/24/2022 12:14 PM LINE LOCATOR Inhaled Oxygen Concentration - - Weight 65.8 kg (145 lb) 04/24/2022 9:44 AM LINE LOCATOR Height 157.5 cm (5' 2) 04/24/2022 9:44 AM LINE LOCATOR Body Mass Index 26.52 04/24/2022 9:44 AM LINE LOCATOR Plan of Treatment Health Maintenance Due Date [...] patient's age to complete this topic Insurance [facility] Care Teams Bible Reader Relationship Specialty Start Date End Date Eunice Hoffman MD [address] [place] [address] [place] [phone] PCP - General Family Medicine 08/01/13
[2024-10-11 10:24] VITALS: BP 107/70; PULSE 65; RESP 16; TEMP 36.6; O2SAT 100
[2024-10-11 11:50] LABS: Basophils Percent Auto 0.2 % (0.2-1.2); Eosinophils Absolute Auto 0.2 K/mm3 (0-0.3); Eosinophils Percent Auto 3.4 % (0-4.4); Hematocrit 41.9 % (37.0-47.0); Hemoglobin 13.6 g/dL (12.0-15.0); Immature Granulocyte Absolute 0.01 K/mm3 (0.00-0.031); Immature Granulocyte Percent A 0.2 % (0-0.5); Lymphocytes Absolute Auto 1.12 K/mm3 (0.9-3.2); Lymphocytes Percent Auto 19.1 % (18.3-44.2); Mean Corpuscular HGB Conc 32.5 g/dl (32-36); Mean Corpuscular Hemoglobin 28.7 pg (26-34); Mean Corpuscular Volume 88.4 fl (80-100); Mean Platelet Volume 10.8 fl (7.4-10.4); Monocytes Absolute Auto 0.3 K/mm3 (0.1-0.6); Monocytes Percent Auto 4.4 % (2.6-8.5); Neutrophils Absolute Auto 4.3 K/mm3 (1.3-6.7); Neutrophils Percent Auto 72.7 % (45.5-73.1); Platelet Count Result 216 k/mm3 (150-375); Red Blood Count 4.74 M/mm3 (4.2-5.4); Red Cell Distribution Width 13.2 % (11.5-14.5); White Blood Count 5.9 K/mm3 (4.5-10.0)
[2024-10-11 12:02] LABS: Alanine Aminotransferase 14 U/L (6-35); Albumin Level 4.7 g/dL (3.5-5.1); Alkaline Phosphatase 64 U/L (38-126); Anion Gap 7 mmol/L (4-12); Aspartate Amino Transferase 27 U/L (14-36); Bilirubin,Total 0.5 mg/dL (0.2-1.3); Blood Urea Nitrogen 10 mg/dL (7-17); Calcium 9.4 mg/dL (8.4-10.2); Carbon Dioxide 28 mmol/L (22-30); Chloride 105 mmol/L (98-107); Estimated CRCL calculation 118 ml/min; Estimated Glomerular Filt Rate > 60; Glucose 92 mg/dL (65-110); INR 0.9; Potassium 4.2 mmol/L (3.4-5.0); Prothrombin Time 12.3 Seconds (11.1-14.7); Sodium 140 mmol/L (137-145)
[2024-10-11 12:03] LABS: Partial Thromboplastin Time 26.3 Seconds (22.3-36.8)
--- OUTSIDE RECORDS SUMMARY | 2024-10-11 12:12 | XMS_ITS | Clinical Summary ---
Author Organization [facility] Address [address] [place] [address] Care Team Providers Care Steel Analyst Name Role Phone Eunice Hoffman MD Primary [...] on file Legal Sex Female 7:55 PM DRESS MARKER Gender Identity Not on file Sexual Orientation Not on file Obstetrics History Para Term AB IAB SAB Ectopic Multiple Livin g Live Births 2 2 2 2 Date Outcome GA Total Labor Labor/2nd/3rd Weight Sex Type Anes PTL Teresa A1 A5 Name Clin Term Term Last Filed Vital Signs Vital Sign Reading Time Taken Comments Blood Pressure 101/65 06/22/2024 3:04 PM DRESS MARKER Pulse 65 06/22/2024 3:04 PM DRESS MARKER Temperature 36.8 C (98.3 F) 06/22/2024 3:04 PM DRESS MARKER Respiratory Rate - - Oxygen Saturation - - Inhaled Oxygen Concentration - - Weight 74.8 kg (164 lb 12.8 oz) 06/22/2024 3:04 PM DRESS MARKER Height 160 cm (5' 3) 06/22/2024 3:04 PM DRESS MARKER Body Mass Index 29.19 06/22/2024 3:04 PM DRESS MARKER Plan of Treatment Health Maintenance Due Date [...] HPV Vaccines Completed 10/02/2015, 09/16, 08/28/2011 Insurance [facility] Care Teams Steel Analyst Relationship Specialty Start Date End Date Eunice Hoffman MD [address] [place] [id number] PCP - General Family Medicine 05/31/23
--- OUTSIDE RECORDS SUMMARY | 2024-10-11 12:12 | XMS_ITS | Clinical Summary ---
Author Organization [facility] Address [address] [facility] [place] [address] Care Team Providers Care Clinical Faculty Name Role Phone Eunice Hoffman MD Primary Care Provider [phone] Source Comments [facility],non-owned Affiliates and Associated Physician Practices is amultiple site organization consisting of ambulatory clinics and hospital sitesin [place], [place], [place] and [place]. This disclosure is being madepursuant to the Care Everywhere program and may not contain all information available regarding this patient. Last updated 18.[facility] Allergies No known active allergies Medications * [...] on file Legal Sex Female 5:40 AM EMPLOYMENT ADJUDICATOR Gender Identity Not on file Sexual Orientation Not on file Last Filed Vital Signs Vital Sign Reading Time Taken Comments Blood Pressure 103/55 04/24/2022 12:19 PM EMPLOYMENT ADJUDICATOR Ri ght arm Pulse 102 04/24/2022 12:14 PM EMPLOYMENT ADJUDICATOR Temperature 36.8 C (98.3 F) 04/24/2022 12:14 PM EMPLOYMENT ADJUDICATOR Respiratory Rate 17 04/24/2022 12:14 PM EMPLOYMENT ADJUDICATOR Oxygen Saturation 99% 04/24/2022 12:14 PM EMPLOYMENT ADJUDICATOR Inhaled Oxygen Concentration - - Weight 65.8 kg (145 lb) 04/24/2022 9:44 AM EMPLOYMENT ADJUDICATOR Height 157.5 cm (5' 2) 04/24/2022 9:44 AM EMPLOYMENT ADJUDICATOR Body Mass Index 26.52 04/24/2022 9:44 AM EMPLOYMENT ADJUDICATOR Plan of Treatment Health Maintenance Due Date [...] patient's age to complete this topic Insurance [facility] Care Teams Clinical Faculty Relationship Specialty Start Date End Date Eunice Hoffman MD [address] [place] [address] [place] [phone] PCP - General Family Medicine 08/01/13
--- OUTSIDE RECORDS SUMMARY | 2024-10-11 12:12 | XMS_ITS | Referral Summary ---
Author Organization [facility] Address [address] [place] [phone] Care Team Providers Care Checker And Packer Name Role Phone Eunice Hoffman MD Primary [...] on file Legal Sex Female 7:55 PM MUSEUM DIRECTOR Gender Identity Not on file Sexual Orientation Not on file Last Filed Vital Signs Vital Sign Reading Time Taken Comments Blood Pressure 101/65 06/22/2024 3:04 PM MUSEUM DIRECTOR Pulse 65 06/22/2024 3:04 PM MUSEUM DIRECTOR Temperature 36.8 C (98.3 F) 06/22/2024 3:04 PM MUSEUM DIRECTOR Respiratory Rate - - Oxygen Saturation - - Inhaled Oxygen Concentration - - Weight 74.8 kg (164 lb 12.8 oz) 06/22/2024 3:04 PM MUSEUM DIRECTOR Height 160 cm (5' 3) 06/22/2024 3:04 PM MUSEUM DIRECTOR Body Mass Index 29.19 06/22/2024 3:04 PM MUSEUM DIRECTOR Plan of Treatment Not on file Insurance [facility] Care Teams Checker And Packer Relationship Specialty Start Date End Date Eunice Hoffman MD [address] [place] [address] [place] [address] PCP - General Family Medicine 05/31/23
--- NOTE | 2024-10-11 12:33 | ED_ITS ---
HPI - General Adult General Chief complaint: Vaginal Bleeding Stated complaint: 7 wks preg, bleeding Time Seen by Provider: 10/11/24 12:02 History of Present Illness HPI narrative: [age] old female presents to the emergency department evaluation for vaginal bleeding. Patient suspects she was approximately 7 weeks . Patient did present to the emergency department on for similar symptoms, at that time she was having vaginal cramping and vaginal bleeding. Patient did have an ultrasound that showed an intrauterine . Patient's beta hCG was approximately 6000. Patient states over the course of the weekend that she did have worsening vaginal bleeding and abdominal cramping. Patient was concerned because she did pass some large clots. Patient provided photos of passed clots. Patient's blood type is B positive Related Data Home Medications ?Medication ?Instructions ?Recorded ?Confirmed ?Last Taken ?Type bupropion HCl 300 mg 24 hr tablet, 300 mg PO DAILY 12/05/23 12/05/23 Unknown History extended release Allergies Allergy/AdvReac Type Severity Reaction Status Date / Time No Known Allergies Allergy Verified 10/11/24 10:27 Review of Systems 2 Review of Systems: All systems reviewed & are unremarkable except as noted in HPI and below PMFSH Past Medical History Medical History No pertinent past medical history Surgical History Surgical History No pertinent past surgical history Family History Family History Mother Family history non-contributory Social History Social History Smoking status: Never smoker Substance use: never Gender identity (if verbalized by the patient): Female Spiritual care concerns: No Exam 2 Narrative: APPEARANCE: Well appearing, no pain, no distress, well-nourished. HEAD: normocephalic, atraumatic. EYES: PERRLA/EOMI, conjunctivae clear. NOSE: Normal no drainage EARS:TMS clear with good light reflex. THROAT: Pharynx clear, no exudate. NECK: Supple. No adenopathy, no masses. RESPIRATORY: Airway patent, respirations nonlabored. Clear to auscultation bilaterally, no rales, rhonchi, wheezing. CARDIOVASCULAR: Regular rate and rhythm without murmurs rubs or gallops. ABDOMINAL: Soft, nontender, nondistended, normal bowel sounds MUSCULOSKELETAL: Moves all extremities. Strength/ROM intact, No edema, No calf tenderness. NEURO: Alert. Cranial nerves II through XII intact. Good gait. Good coordination SKIN: Warm, dry. Normal Color Course Vital Signs Vital signs: Vital Signs Temperature 98 F 10/11/24 10:24 Pulse Rate 65 10/11/24 10:24 Respiratory Rate 16 10/11/24 10:24 Blood Pressure 107/70 10/11/24 10:24 Pulse Oximetry 100 10/11/24 10:24 Oxygen Delivery Room Air 10/11/24 10:24 Temperature 98 F 10/11/24 10:24 Pulse Rate 65 10/11/24 10:24 Respiratory Rate 16 10/11/24 10:24 Blood Pressure 107/70 10/11/24 10:24 Pulse Oximetry 100 10/11/24 10:24 Oxygen Delivery Room Air 10/11/24 10:24 Medical Decision Making MDM Narrative Medical decision making narrative: 24-year-old female presents to the emergency department for evaluation for persistent vaginal bleeding abdominal cramping. Patient is currently afebrile with no leukocytosis and has stable hemoglobin of 13.6. Patient's INR 0.9. Patient has no acute abnormalities on her CMP patient's beta hCG is 6438. Ultrasound was repeated due to worsening abdominal cramping and worsening vaginal bleeding. Ultrasound today shows single intrauterine gestation with an approximate gestational age of 6 weeks and 5 days, without cardiac activity identified on today's static or cine imaging. Given that cardiac activity was detected on previous examination dated 10/06/2024, the absence of cardiac activity on today's study is concerning for gestational loss. Patient was updated on the results of her ultrasound. Patient was advised to have close follow-up. All questions concerns were addressed. Differential Diagnosis Differential Diagnosis: Threatened miscarriage, miscarriage, demise Vital Signs Vital Signs: Vital Signs Temperature 98 F 10/11/24 10:24 Pulse Rate 65 10/11/24 10:24 Respiratory Rate 16 10/11/24 10:24 Blood Pressure 107/70 10/11/24 10:24 Pulse Oximetry 100 10/11/24 10:24 Oxygen Delivery Room Air 10/11/24 10:24 Temperature 98 F 10/11/24 10:24 Pulse Rate 65 10/11/24 10:24 Respiratory Rate 16 10/11/24 10:24 Blood Pressure 107/70 10/11/24 10:24 Pulse Oximetry 100 10/11/24 10:24 Oxygen Delivery Room Air 10/11/24 10:24 Lab Data Lab results reviewed: Yes I reviewed the patient's lab results. 10/11/24 11:40 10/11/24 11:40 Labs: Lab Results 10/11/24 Range/Units 11:40 WBC 5.9 (4.5-10.0) K/mm3 RBC 4.74 (4.2-5.4) M/mm3 Hgb 13.6 (12.0-15.0) g/dL Hct 41.9 (37.0-47.0) % MCV 88.4 (80-100) fl MCH 28.7 (26-34) pg MCHC 32.5 (32-36) g/dl RDW 13.2 (11.5-14.5) % Plt Count 216 (150-375) k/mm3 MPV 10.8 H (7.4-10.4) fl Immature Gran % (Auto) 0.2 (0-0.5) % Neut % (Auto) 72.7 (45.5-73.1) % Lymph % (Auto) 19.1 (18.3-44.2) % [place] % (Auto) 4.4 (2.6-8.5) % Eos % (Auto) 3.4 (0-4.4) % Baso % (Auto) 0.2 (0.2-1.2) % Lymph # (Auto) 1.12 (0.9-3.2) K/mm3 [place] # (Auto) 0.3 (0.1-0.6) K/mm3 Eos # (Auto) 0.2 (0-0.3) K/mm3 Baso # (Auto) 0.0 (0.0-0.1) K/mm3 Abs Immat Gran (auto) 0.01 (0.00-0.031) K/mm3 Absolute Neuts (auto) 4.3 (1.3-6.7) K/mm3 Absolute Nucleated RBC 0.000 (0.0-0.012) K/mm3 Nucleated RBC % 0.0 (0.0-0.2) % PT 12.3 (11.1-14.7) Seconds INR 0.9 APTT 26.3 (22.3-36.8) Seconds Sodium 140 (137-145) mmol/L Potassium 4.2 (3.4-5.0) mmol/L Chloride 105 (98-107) mmol/L Carbon Dioxide 28 (22-30) mmol/L Anion Gap 7 (4-12) mmol/L BUN 10 (7-17) mg/dL Creatinine 0.60 L (0.7-1.0) mg/dL Estim Creat Clear Calc 118 ml/min Estimated GFR > 60 (59 - ) Glucose 92 (65-110) mg/dL Calcium 9.4 (8.4-10.2) mg/dL Total Bilirubin 0.5 (0.2-1.3) mg/dL AST 27 (14-36) U/L ALT 14 (6-35) U/L Alkaline Phosphatase 64 (38-126) U/L Total Protein 8.0 (6.3-8.2) g/dL Albumin 4.7 (3.5-5.1) g/dL Beta HCG, Quant 6438.60 mIU/ML Blood Type Cancelled Antibody Screen Cancelled Screen Cancelled Baby's Blood Type Cancelled Baby's MADDISON Cancelled Doses of RhIg Required Cancelled Imaging Data Radiologist's impression: Impressions Obstetrics Ultrasound 10/11/24 13:35 IMPRESSION: Single intrauterine gestation with an approximate gestational age of 6 weeks and 5 days, without cardiac activity identified on today's static or cine imaging. Given that cardiac activity was detected on previous examination dated 10/06/2024, the absence of cardiac activity on today's study is concerning for gestational loss. Short-term follow-up with serial beta hCG is recommended. These findings and recommendations were given to Dr Hernandez at 1:45pm on 10/11/2024 Discharge Plan Discharge Clinical Impression: Miscarriage, threatened, early Patient Disposition: Home Condition: Stable Instructions: Antibiotic Form, Miscarriage (ED) Additional Instructions: There was no heartbeat seen on the ultrasound today while there was a heartbeat seen your ultrasound . This is concerning for a miscarriage. Drink plenty of fluids and take Tylenol for abdominal cramping. Please have close follow-up with OB Gyne. If you have any worsening symptoms then please call or return to the emergency department. Patient Language: Korean Prescriptions: No Action bupropion HCl 300 mg tablet extended release 24 hr 300 mg PO DAILY Follow-up/Referrals: Indy Salinas CNM [Primary Care Provider] - Stand Alone Forms: Work/School Release IP
== END 2024-10-11 14:33 | disposition home or self-care (01) ==
PROVIDERS: Physician Assistant; Emergency Provider Emergency Medicine; PCP Advanced Practice Midwife
DX: O20.0 Threatened abortion (principal); Z3A.01 Less than 8 weeks gestation of pregnancy
CPT/HCPCS: 36415; 76801; 76817; 80053; 84702; 85025; 85461; 85610; 85730; 86850; 86900; 86901; 99284

== ENCOUNTER 2024-10-17 00:37 | Day surgery (SDC) | payer OTHER, SELFPAY ==
[2024-10-14 14:15] VITALS: BMI 27.3
--- NOTE | 2024-10-14 14:24 | PC.NURSE ---
Report to the Outpatient Waiting Room, entrance under the green pavilion located off [facility], at time __145pm on date _10/17/24 . Planned Procedure Time: 3:45pm .? Time changes happen often and if your time is changed the preop area will call you the afternoon before. - You and your visitor will be asked to self-screen and do not enter if you have any COVID symptoms. Please call surgeon if you need to reschedule. - A mask is optional within the hospital at this time. Patients may have clear liquids (water, carbonated beverages, clear teas, apple juice) until 3 hours prior to surgery with a maximum of 20 ounces. - No food from midnight until time of surgery and no smoking, or chewing tobacco (or any form of nicotine). No chewing gum, candy or mints. (12:45pm) Take only the following medications with a SIP of water on the morning of surgery: ___Tylenol if needed DO NOT STOP ANY OF YOUR OTHER PRESCRIPTION MEDICATIONS PRIOR TO SURGERY EXCEPT THE FOLLOWING Hold all vitamins and supplements for 3 days per anesthesiologist. Medications to discontinue per physician None Date to take last dose None Please no make-up, nail german, hairspray, perfume, deodorant, or body powder the day of surgery.? No jewelry (including any body piercings) or valuables the day of surgery, leave them at home.? Please take a shower or bath the night before, or the morning of, surgery with an antibacterial soap.? Wear comfortable, loose fitting clothing.? - Jewelry must be removed prior to entering the operating room.? Rings and piercings that are not removed may be cut off. - The hospital will not accept responsibility for valuables.? - Please leave all valuables, including medications, at home the day of surgery. If you are going home after surgery, a licensed tilt tray driver must drive you home.? - NO public transportation without another adult if you receive anesthesia. - We recommend that an adult stay with you for 24 hours following discharge. - We also recommend that you do not drive, make important decision, drink alcoholic beverages, or take any drugs that were not prescribed by your health care provider for at least 24 hours after your discharge time. Follow any additional instructions given to you from your surgeon. Telephone instructions given to _Patient and asked if any additional questions and then verbalized understanding. Patient advised to call surgeon office or pre surgery nurse liaison [phone] if any additional questions.
[2024-10-17 14:00] VITALS: BP 109/61; PULSE 81; RESP 16; TEMP 36.8; O2SAT 99
[2024-10-17] MEDS: ACETAMINOPHEN 500 MG TABLET 1000 MG PO (14:20)
[2024-10-17] MEDS: LACTATED RINGERS 1,000 ML 30 ML IV CONT (14:25)
--- NOTE | 2024-10-17 15:02 | WPDHPUPDATE1 ---
History and Physical Update Update Date/Time: 10/17/24 15:02 History and Physical has been reviewed, including an updated exam of the patient. There are NO changes in the patient's condition. Risks, benefits, and alternatives have been discussed and questions answered. Patient agrees to proceed with procedure.
--- NOTE | 2024-10-17 15:30 | WPDANESEPPF ---
Anes - Initial Pre Proc Eval Procedure: Operation Date: 10/17/24 15:45 Proposed Procedures p Suction Dilation and Curettage - Darryn Tellez MD Date/Time: 10/17/24 15:30 Surgeon: Darryn Tellez MD Pre Op Diagnosis: Missed AB Patient Data Age: 24 Gender: F Height: 1.6 m Weight: 70.9 kg Last Vital Signs Temp 36.8 C 10/17/24 14:00 Pulse 81 10/17/24 14:00 Resp 16 10/17/24 14:00 BP 109/61 10/17/24 14:00 Pulse Ox 99 10/17/24 14:00 O2 Del Method Room Air 10/17/24 14:00 Allergies Allergy/AdvReac Type Severity Reaction Status Date / Time No Known Allergies Allergy Verified 10/17/24 14:37 Home Medications ?Medication ?Instructions ?Recorded ?Confirmed ?Type bupropion HCl 300 mg 24 hr tablet, 300 mg PO DAILY 12/05/23 10/17/24 History extended release vits no.130-ferrous fum 1 tablet PO DAILY 10/14/24 10/17/24 History 27 mg iron-folic acid 800 mcg tablet ( Vitamin) Patient hx anesthesia problems: none Family hx anesthesia problems: none Results Review: All pre-operative results and documents have been reviewed as part of the pre-operative evaluation. [facility] Past Medical History Medical History No pertinent past medical history Surgical History Surgical History No pertinent past surgical history Family History Family History Mother Family history non-contributory Social History Social History Smoking status: Former smoker Tobacco type: e-cigarettes/vaping Smoking end date: 06/18/24 Additional smoking assessment comments: Quit nicotine vapes when Alcohol intake: never Substance use: never Living arrangements: with family Gender identity (if verbalized by the patient): Female Spiritual care concerns: No Anes - Eval Final PreProcedure Day of Procedure 10/17/24 15:30 Patient weight: overweight Heart: regular rate and rhythm Lungs: clear to auscultation Airway: Mallampati scale class II Neurological: alert and oriented Last oral intake: >/= 8 hours ASA classification: II Emergent: no Anesthetic plan: proceed Anesthesia type and monitoring: general GIVS and standard monitoring Results Review: All pre-operative results and documents have been reviewed as part of the pre-operative evaluation. Informed Consent: The patient's anesthetic plan and its attendant risks and benefits were discussed with the patient/family/POA. Questions were solicited and answers provided to the satisfaction of the patient/family/POA.
--- NOTE | 2024-10-17 16:04 | S_PTH ---
PATIENT: Erika Wilkinson LOC: [facility] U#:[id number] AGE/SX: 24/F ROOM: RE10/17/[address]: Darryn Tellez MD : 2000 BED: DIS: 10/17/2024 SPEC #: [id number] RECD: 10/18/24 07:46 STATUS: HARRIS RELaureen #: [id number] ERIC: 10/17/24 16:[address]: Darryn Tellez DEPT: [facility] Surgical RECD BY: Fabiana Jc ENTERED: 10/18/24 07:46 SP TYPE: Surgical OTHR DR: MID LEVEL BUSINESS ANALYST PHYSICIAN Tissues: A - Products of Conception Procedures: Hematoxylin and Eosin Stain Gross and Microscopic Level 4
[2024-10-17] MEDS: KETOROLAC 15 MG/ML VIAL (*BKC) IV PUSH (16:08)
[2024-10-17 16:14] VITALS: BP 108/55; PULSE 60; RESP 14; O2SAT 100
--- NOTE | 2024-10-17 16:27 | P.OP_ITS ---
Procedure Note - Detailed Date of Procedure 10/17/24 Pre-op Diagnosis Missed AB Post-op Diagnosis Same Procedure Performed Suction D&C Surgeon Darryn Tellez MD Anesthesia MAC Indications missed Findings normal-appearing vulva vagina and cervix to. Moderate amount of products conception within the uterus. 8 cm uterus Description of Procedure the patient was taken the operating room. She was prepped and draped in dorsal lithotomy position after induction of mac anesthesia. A speculum was placed in the vagina. Cervix grasped with tenaculum. The cervix was dilated to about 1 cm Using Ralph dilators. A 8. Nauruan curved curette was used to perform suction D&C. The curette was introduced and vacuum was applied. The curette was removed over all surfaces of the intrauterine cavity multiple times. This was done until all the surfaces were clear and had the familiar grainy texture they can be felt through the instrument. A sharp curette was then used to curettage all the surfaces. The suction cup was then reapplied 1 more time to remove any debris. The instruments were removed. The speculum and tenaculum were removed. The patient tolerated the procedure well. She was taken recovery room stable condition. Estimated Blood Loss 50 Drains No Packing No Pathology Yes Complications No immediate complications Condition Stable Disposition PACU
[2024-10-17 16:40] VITALS: BP 116/62; PULSE 44; RESP 14; O2SAT 100
[2024-10-17 17:10] VITALS: BP 106/59; PULSE 47; RESP 14
== END 2024-10-17 17:15 | disposition home or self-care (01) ==
PROVIDERS: Referring Provider Advanced Practice Midwife; Visit Provider Obstetrics & Gynecology
PROC: (CPT 59820; principal; 2024-10-17 15:45)
DX: O02.1 Missed abortion (principal); K21.9 Gastro-esophageal reflux disease without esophagitis; D64.9 Anemia, unspecified; F41.9 Anxiety disorder, unspecified; J45.909 Unspecified asthma, uncomplicated; F32.A Depression, unspecified; F17.290 Nicotine dependence, other tobacco product, uncomplicated; Z79.891 Long term (current) use of opiate analgesic
CPT/HCPCS: 59820; 88305; A9270; J1885; J2003; J2250; J2704; J3010; J7120

== ENCOUNTER 2025-04-16 12:26 | Emergency (ER) | payer OTHER, SELFPAY ==
--- NOTE | 2025-04-16 12:54 | ED_ITS ---
HPI - URI/Sore Throat General Chief Complaint: Upper Respiratory Infection Stated Complaint: cold symptoms, sorethroat Time Seen by Provider: 04/16/25 12:30 Source: patient Mode of arrival: ambulatory Limitations: no limitations History of Present Illness HPI Narrative: Patient is a 24-year-old female who presents with sore throat, congestion and hoarseness for 2 days. Patient has taken 1 dose of Tylenol and some Mucinex. Denies any fever, chills, nausea, vomiting, diarrhea. Related Data Allergies Allergy/AdvReac Type Severity Reaction Status Date / Time No Known Allergies Allergy Verified 04/16/25 12:56 Review of Systems Review of Systems: All systems reviewed & are unremarkable except as noted in HPI and below Constitutional: Constitutional: Denies chills, Denies fatigue, Denies fever(s), Denies headache(s), Denies malaise and Denies weakness Eyes: Eyes: Denies blurry vision, Denies itchy eyes and Denies loss of vision ENT: Denies otalgia, Denies headache(s), Reports hoarseness, Reports nasal congestion, Denies sinus pain and Reports sore throat Cardiovascular: Cardiovascular: Denies chest pain, Denies irregular heart rhythm and Denies dyspnea Respiratory: Respiratory: Denies cough and Denies dyspnea Gastrointestinal: Gastrointestinal: Denies abdominal pain, Denies diarrhea, Denies nausea and Denies vomiting Musculoskeletal: Musculoskeletal: Denies back pain, Denies myalgias and Denies arthralgias Integumentary/Breasts: Skin/Breast: Denies pruritus and Denies rash Neurologic: Denies headache(s), Denies loss of vision and Denies weakness Psychiatric: Psychiatric: Reports no additional psychiatric complaints Endocrine: Endocrine: Denies fatigue Allergic/Immunologic: Allergic/Immunologic: Denies itchy eyes PMFSH Past Medical History Medical History No pertinent past medical history Surgical History Surgical History No pertinent past surgical history Family History Family History Mother Family history non-contributory Social History Social History (Reviewed 04/16/25 @ 13:46 by LINO Hernandez Smoking status: Former smoker Tobacco type: e-cigarettes/vaping Smoking end date: 06/18/24 Additional smoking assessment comments: Quit nicotine vapes when Alcohol intake: never Substance use: never Living arrangements: with family Gender identity (if verbalized by the patient): Female Spiritual care concerns: No Comments At time of signature, agree with nursing past medical, surgical, social and family history. There is no relevant family history pertinent to the presenting complaint. Exam Const: General: cooperative, healthy appearing, comfortable, no acute distress and well nourished Nutritional Appearance: well nourished Orientation/consciousness: patient oriented x3 Limitations: no limitations HENMT: Head: normal to inspection, normocephalic and atraumatic Ears: hearing grossly normal bilaterally, external ears normal, TM's normal bilaterally, EAC's normal and no periauricular adenopathy Face/Nose/Sinus: Normal external nose present, Abnormal mucous membranes and turbinates present erythematous bilateral and diffuse, normal facial exam, sinuses nontender and face symmetric Face and sinus: normal facial exam, sinuses nontender and face symmetric Mouth: Yes Normal oral and palatal mucosa present, Yes lip normal, Yes tongue normal, Yes Normal salivary glands and ducts present, Yes oropharynx normal and Yes moist mucous membranes Teeth and gingiva: dentition normal Throat: posterior oropharynx normal, tonsils normal and uvula midline Eyes: General: appearance normal, both eyes and all related structures Alignment and Position: alignment normal and position normal Periorbital: periorbital findings normal Eyelids: eyelids normal Pupils: Equal, round and reactive pupils present Neck: Neck: normal visual inspection, full ROM, no lymphadenopathy and supple Chest: Chest palpation & inspection: normal inspection of the chest and normal palpation of entire chest wall Resp: Effort & Inspection: normal respiratory effort and able to speak in complete sentences Auscultation: clear to auscultation bilaterally, no crackles, no rales, no rhonchi and no wheezes Cardio: Rate: regular rate Rhythm: regular rhythm Heart sounds: S1 normal heart sound present and S2 normal heart sound present GI: Inspection: normal to inspection Skin: General skin exam: normal color and no rashes or lesions noted Neuro: General: patient oriented x3 and moves all extremities Cranial nerves: Yes Equal, round and reactive pupils present Speech: normal speech Gait exam (Neuro): Normal gait present Extrem: General: normal to inspection, full ROM and no edema Psych: Appearance: grossly normal and well kempt Mental Status: mental status grossly normal Speech and movement: Normal speech and movement present Affect: normal affect Attitude: cooperative Thought process: Normal thought process present Course Course Emergency Course: Discharge instructions reviewed with patient, as well as provided in writing per nursing staff. The instructions also include specific and strict return/GO TO THE ER as well as f/u information. All questions have been answered, and the patient deny any further questions with discharge and discharge plan. Portions of this record may have been created with voice recognition software Level of Care: Express Care Visit Vital Signs Vital signs: Vital Signs Temperature 36.8 C 04/16/25 13:06 Pulse Rate 84 04/16/25 13:06 Respiratory Rate 18 04/16/25 13:06 Blood Pressure 105/71 04/16/25 13:06 Pulse Oximetry 100 04/16/25 13:06 Oxygen Delivery Room Air 04/16/25 13:06 Temperature 36.8 C 04/16/25 13:06 Pulse Rate 84 04/16/25 13:06 Respiratory Rate 18 04/16/25 13:06 Blood Pressure 105/71 04/16/25 13:06 Pulse Oximetry 100 04/16/25 13:06 Oxygen Delivery Room Air 04/16/25 13:06 Reviewed MDM - URI/Sore Throat MDM Narrative Medical decision making narrative: Rapid COVID, flu, strep were negative. A throat culture is pending. Symptoms likely viral in etiology. Pt well hydrated appearing, in no respiratory distress, hemodynamically stable. Recommend supportive care. The patient is stable at time of discharge the clinical impression was discussed and the patient was given the opportunity to ask questions, which were addressed as completely as possible given the information available at present. Anticipatory guidance and return to care precautions were discussed and the importance of primary care follow-up was stressed and encouraged. The patient voiced understanding of the plan, indications to return, and the need for follow-up. Exam findings show no acute concerns or changes Patient is appropriate for outpatient treatment and follow-up. Differential diagnosis considered: Allen virus, strep pharyngitis, allergic rhinitis, upper respiratory tract infection, sinusitis, rhinosinusitis, nasopharyngitis. viral pharyngitis, otitis media, otitis externa, otitis effusio n, foreign body, cerumen impaction, viral syndrome, and influenza.? Medical Records Attestation: I reviewed the patient's medical records. Lab Data Attestation: I reviewed the patient's lab results. Labs: Lab Results 04/16/25 Range/Units 13:01 POC Influenza A Ag Negative (Negative) POC Influenza B Ag Negative (Negative) POC SARS CoV-2 Ag Negative (Negative) POC Grp A Strep Screen Negative (Negative) Discharge Plan Discharge Clinical Impression: Upper respiratory infection Qualifiers: URI type: acute nasopharyngitis (common cold) Qualified Code(s): J00 - Acute nasopharyngitis [common cold] Patient Disposition: Home Condition: Stable Instructions: Upper Respiratory Infection (ED) Additional Instructions: Your rapid strep swab was negative today at [facility]. A throat culture will be sent to the laboratory for further testing. If the test is positive, you will receive a phone call within 48 hours and an appropriate antibiotic will be initiated at that time. Your Covid and flu are both negative Your symptoms are likely due to a viral illness, which is not treated with antibiotics. Viral symptoms can be present for up to a few weeks. -For pain/fever, you may take: Tylenol 650-1000mg by mouth every 4-6 hours. Do not exceed 4000mg in 24 hours. Advil (Ibuprofen) 600 mg by mouth every 6 hours. Do not exceed 2400mg in 24 hours. 8 AM: Tylenol 11 AM: Ibuprofen 2 PM: Tylenol 5 PM: Ibuprofen 8 PM: Tylenol 11 PM: Ibuprofen 2 AM: Tylenol 5 AM: Ibuprofen -Antihistamine medication such as Benadryl/Zyrtec at night and Claritin/Cristina during the day can help improve symptoms. -Use Flonase twice a day for 5 days then daily to help reduce the inflammation and dry up your sinuses. -You can also use Sudafed behind the pharmacy counter(12 or 24 hour). Be sure to drink plenty of water with these medications at least 8 ounces with every dose and it is important to drink 8 to 10 glasses of water per day. Water is a natural decongestant -Eat and drink things that are easy to swallow, like tea or soup, or popsicles. -Oral rinses such as: Salt water gargles and/or may use topical anesthetic (eg. Chloraseptic spray) or lozenges to relieve dryness or throat pain). -Frequent hand washing or hand network systems integrator is one of the best ways to prevent spread of infection. -Using a vaporizer or humidifier at night will also help thin secretions and help with coughing up phlegm. Call your Primary Care Doctor and make a follow-up appointment in 3 days. If your cough worsens, you develop a fever greater than 103, you develop shaking chills, a fast heartbeat, trouble breathing and/or feel you are are breathing much faster than usual, call your Primary Care Doctor or go to the ER. Patient Language: Singaporean Prescriptions: New ibuprofen 600 mg tablet 600 mg PO TID Qty: 30 0RF fluticasone propionate [Flonase Allergy Relief] 50 mcg/actuation spray,suspension 1 spray intranasal DAILY Qty: 16 0RF Rx Instructions: administer into each nostril loratadine 10 mg tablet 10 mg PO DAILY Qty: 30 0RF Follow-up/Referrals: Dalton,Eunice Ocasio MD [Primary Care Provider] - 3 Days Time of Disposition: 13:40
[2025-04-16 13:06] VITALS: BP 105/71; PULSE 84; RESP 18; TEMP 36.8; O2SAT 100
[2025-04-16 13:13] LABS: EDSTREPNEGPOS1 Negative (Negative)
[2025-04-16 13:24] LABS: EDCOVIDSCREEN Negative (Negative); EDINFLUASCREEN Negative (Negative); EDINFLUBSCREEN Negative (Negative)
== END 2025-04-16 13:47 | disposition home or self-care (01) ==
PROVIDERS: Emergency Provider Nurse Practitioner Family; PCP Family Medicine
DX: J00 Acute nasopharyngitis [common cold] (principal); Z87.891 Personal history of nicotine dependence; Z20.822 Contact with and (suspected) exposure to COVID-19
CPT/HCPCS: 87081; 87426; 87804; 87880; 99213; G0463